=== PATIENT | female | born 1960 | race Caucasian/White ===

== ENCOUNTER 2018-11-29 09:57 | Outpatient (CLI) | payer BC, SELFPAY ==
--- NOTE | 2018-11-29 09:48 | DI.RAD_ITS ---
SYMPTOM/DIAGNOSIS: LT KNEE PAIN LEFT KNEE: Comparison is made with 27 January 2018. Areas of sclerosis are again noted in the distal femur and proximal tibia related to prior ACL repair. The joint spaces are well maintained. No joint effusion is seen.
== END 2018-11-29 10:17 ==
PROVIDERS: Visit Provider Physician Assistant
DX: M25.562 Pain in left knee (principal)
CPT/HCPCS: 73562

== ENCOUNTER 2018-12-02 01:26 | Outpatient (CLI) | payer BC, SELFPAY ==
--- NOTE | 2018-12-02 10:45 | DI.MRI_ITS ---
SYMPTOM/DIAGNOSIS: CHRONIC LT KNEE PAIN, OSTEOCHONDRAL DEFECT, INTERNAL DERANGEMENT KNEE M24.10 MRI LEFT KNEE: Comparison is made with MRI of the left knee dated 09 February 2018 and plain films dated 29 November 2018 FS T2 axial, proton density and FS T2 sagittal and coronal and proton density oblique sagittal sequences were performed. There is some thickening within the anterior cruciate ligament repair near the femoral attachment but no definite change from the previous exam. The posterior cruciate ligament, medial and lateral collateral ligaments and extensor mechanism appear intact. The medial meniscus appears slightly diminutive. There is no evidence of a superimposed tear. The lateral meniscus appears intact. There is a small joint effusion. No cartilage defects are identified. IMPRESSION: Intact ACL repair. Post surgical changes of the medial meniscus without evidence of superimposed tear. No evidence of an osteochondral defect.
== END 2018-12-02 01:46 ==
PROVIDERS: Visit Provider Student in an Organized Health Care Education/Training Program
DX: M25.562 Pain in left knee (principal); M23.92 Unspecified internal derangement of left knee; M24.10 Other articular cartilage disorders, unspecified site
CPT/HCPCS: 73721

== ENCOUNTER 2019-01-25 08:15 | Day surgery (SDC) | payer BC, SELFPAY ==
[2019-01-25] VITALS (7 sets, daily range): BP systolic 113–136; BP diastolic 62–80; PULSE 67–78; RESP 13–21; TEMP 35.8–36.7; O2SAT 95–98
--- NOTE | 2019-01-25 08:14 | W.PREOPHP ---
Documented by User: MELONIE Rosas 01/25/19 09:03 Date of service: 01/25/19 Assessment and Plan (1) Internal derangement of left knee: Current visit: No Status: Chronic LEFT knee arthroscopy. Details of surgery were discussed with patient as well as pertinent anatomy. All questions were answered. History of Present Illness Chief Complaint: Left knee pain Narrative: Laura is a 58 year old femaile who comes in today for a LEFT knee arthroscopy. She has had a very complex history with the left knee, starting with an injury in the summer where she suffered an ACL tear. She had an ACL reconstruction in September of 2016 and since then has experienced LEFT knee pain with weight bearing. She has exhausted all measures of conservative treatment including injections, a period of non-weightbearing, a LEFT knee arthroscopy, and an MRI in order to rule out other diagnoses including AVN of the left knee. Despite these interventions and tests, she has neither found an answer, nor a treatment that has given her relief from her pain. At this point, Dr. Reese offers a LEFT knee arthroscopy with synovial biopsy for diagnostic purposes, and Laura agrees with this plan and elects to proceed. Pertinent Surgical Information Patient denies history of hypertension, CVA, NH, angina, asthma, COPD, renal or liver disorders, hepatitis, bleeding disorders, diabetes, immune or thyroid disorders. No complications from anesthesia. Review of Systems Constitutional Denies fever(s) ENT Denies dizziness and Denies sore throat Cardiovascular Denies chest pain, Denies palpitations and Denies dyspnea Respiratory Denies cough and Denies dyspnea Gastrointestinal Denies abdominal pain, Denies melena, Denies hematochezia, Denies diarrhea, Denies nausea and Denies vomiting Genitourinary Denies hematuria and Denies dysuria Neurologic Denies dizziness Endocrine Denies palpitations [facility] Medical History Abdominal bloating Abdominal pain Anxiety Colonic polyp Effusion, left knee Nella's disease Hx of abnormal mammogram Left ACL tear Neck pain 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 Sister Diabetes Sister No problems noted. Brother Neoplasm Brother No problems noted. Brother No problems noted. Son No problems noted. Son No problems noted. Son No problems noted. Daughter No problems noted. Social History Smoking/Tobacco Use Status: Current every day Drug use: Never Do you feel safe in your relationship?: Yes Meds Home Medications Medication Instructions Recorded Confirmed Type omega-3 fatty acids-fish oil 1 ea PO DAILY 02/16/13 01/25/19 History epinephrine [EpiPen 2-Dylan] 0.3 mg IJ PRN #1 pkt 02/21/14 01/25/19 Rx Restasis 1 drp OPHTHALMIC BID drp 07/06/14 01/25/19 History Narcan 4 mg NS DIRECTED #2 spray 09/22/17 01/25/19 Rx citalopram 10 mg PO DAILY #90 tab-cap 03/03/18 01/25/19 Rx acetaminophen [Acetaminophen Extra 1,000 mg PO TID #100 tab 04/06/18 01/25/19 Rx Strength] ibuprofen 600 mg PO Q6H PRN PRN #90 tab 04/06/18 01/25/19 Rx fluocinolone 15 gm TOPICAL BID PRN 01/21/19 01/25/19 History sodium chloride [Isra 128] 1 drp OPHTHALMIC (EYE) HS 01/21/19 01/25/19 History Allergies Allergy/AdvReac Type Severity Reaction Status Date / Time oregano Allergy Severe Anaphylaxsi Verified 01/25/19 08:35 s pineapple AdvReac Intermediate some Verified 01/25/19 08:35 swelling of tongue lobster Allergy Intermediate Uncoded 01/21/19 11:38 Exam HENMT Head: normocephalic and atraumatic General nose exam: no nasal discharge Other: soft palate rises symmetrically, no erythema Eyes Conjunctivae: conjunctivae normal Sclera: sclerae normal Resp Effort & Inspection: normal respiratory effort Auscultation: clear to auscultation bilaterally and no wheezes Cardio Rate: regular rate Rhythm: regular rhythm Heart Sounds: S1 normal, S2 normal and no murmurs Documented by User: Pepe Reese MD 01/25/19 12:05 [facility] Medical History Abdominal bloating Abdominal pain Anxiety Colonic polyp Effusion, left knee Nella's disease Hx of abnormal mammogram Left ACL tear Neck pain 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 Sister Diabetes Sister No problems noted. Brother Neoplasm Brother No problems noted. Brother No problems noted. Son No problems noted. Son No problems noted. Son No problems noted. Daughter No problems noted. Social History Smoking/Tobacco Use Status: Current every day Drug use: Never Do you feel safe in your relationship?: Yes Meds Home Medications Medication Instructions Recorded Confirmed Type omega-3 fatty acids-fish oil 1 ea PO DAILY 02/16/13 01/25/19 History epinephrine [EpiPen 2-Dylan] 0.3 mg IJ PRN #1 pkt 02/21/14 01/25/19 Rx Restasis 1 drp OPHTHALMIC BID drp 07/06/14 01/25/19 History Narcan 4 mg NS DIRECTED #2 spray 09/22/17 01/25/19 Rx citalopram 10 mg PO DAILY #90 tab-cap 03/03/18 01/25/19 Rx acetaminophen [Acetaminophen Extra 1,000 mg PO TID #100 tab 04/06/18 01/25/19 Rx Strength] ibuprofen 600 mg PO Q6H PRN PRN #90 tab 04/06/18 01/25/19 Rx fluocinolone 15 gm TOPICAL BID PRN 01/21/19 01/25/19 History sodium chloride [Isra 128] 1 drp OPHTHALMIC (EYE) HS 01/21/19 01/25/19 History Allergies Allergy/AdvReac Type Severity Reaction Status Date / Time oregano Allergy Severe Anaphylaxsi Verified 01/25/19 08:35 s pineapple AdvReac Intermediate some Verified 01/25/19 08:35 swelling of tongue lobster Allergy Intermediate Uncoded 01/21/19 11:38
--- NOTE | 2019-01-25 08:23 | HPE_ITS ---
Documented by User: MELONIE Rosas 01/25/19 09:03 Date of service: 01/25/19 Assessment and Plan (1) Internal derangement of left knee: Current visit: No Status: Chronic LEFT knee arthroscopy. Details of surgery were discussed with patient as well as pertinent anatomy. All questions were answered. History of Present Illness Chief Complaint: Left knee pain Narrative: Laura is a 58 year old femaile who comes in today for a LEFT knee arthroscopy. She has had a very complex history with the left knee, starting with an injury in the summer where she suffered an ACL tear. She had an ACL reconstruction in September of 2016 and since then has experienced LEFT knee pain with weight bearing. She has exhausted all measures of conservative treatment including injections, a period of non-weightbearing, a LEFT knee arthroscopy, and an MRI in order to rule out other diagnoses including AVN of the left knee. Despite these interventions and tests, she has neither found an answer, nor a treatment that has given her relief from her pain. At this point, Dr. Reese offers a LEFT knee arthros copy with synovial biopsy for diagnostic purposes, and Laura agrees with this plan and elects to proceed. Pertinent Surgical Information Patient denies history of hypertension, CVA, GA, angina, asthma, COPD, renal or liver disorders, hepatitis, bleeding disorders, diabetes, immune or thyroid disorders. No complications from anesthesia. Review of Systems Constitutional Denies fever(s) ENT Denies dizziness and Denies sore throat Cardiovascular Denies chest pain, Denies palpitations and Denies dyspnea Respiratory Denies cough and Denies dyspnea Gastrointestinal Denies abdominal pain, Denies melena, Denies hematochezia, Denies diarrhea, Denies nausea and Denies vomiting Genitourinary Denies hematuria and Denies dysuria Neurologic Denies dizziness Endocrine Denies palpitations [facility] Medical History Abdominal bloating Abdominal pain Anxiety Colonic polyp Effusion, left knee Nella's disease Hx of abnormal mammogram Left ACL tear Neck pain 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 Sister Diabetes Sister No problems noted. Brother Neoplasm Brother No problems noted. Brother No problems noted. Son No problems noted. Son No problems noted. Son No problems noted. Daughter No problems noted. Social History Smoking/Tobacco Use Status: Current every day Drug use: Never Do you feel safe in your relationship?: Yes Meds Home Medications Medication Instructions Recorded Confirmed Type omega-3 fatty acids-fish oil 1 ea PO DAILY 02/16/13 01/25/19 History epinephrine [EpiPen 2-Dylan] 0.3 mg IJ PRN #1 pkt 02/21/14 01/25/19 Rx Restasis 1 drp OPHTHALMIC BID drp 07/06/14 01/25/19 History Narcan 4 mg NS DIRECTED #2 spray 09/22/17 01/25/19 Rx citalopram 10 mg PO DAILY #90 tab-cap 03/03/18 01/25/19 Rx acetaminophen [Acetaminophen Extra 1,000 mg PO TID #100 tab 04/06/18 01/25/19 Rx Strength] ibuprofen 600 mg PO Q6H PRN PRN #90 tab 04/06/18 01/25/19 Rx fluocinolone 15 gm TOPICAL BID PRN 01/21/19 01/25/19 History sodium chloride [Isra 128] 1 drp OPHTHALMIC (EYE) HS 01/21/19 01/25/19 History Allergies Allergy/AdvReac Type Severity Reaction Status Date / Time oregano Allergy Severe Anaphylaxsi Verified 01/25/19 08:35 s pineapple AdvReac Intermediate some Verified 01/25/19 08:35 swelling of tongue lobster Allergy Intermediate Uncoded 01/21/19 11:38 Exam HENMT Head: normocephalic and atraumatic General nose exam: no nasal discharge Other: soft palate rises symmetrically, no erythema Eyes Conjunctivae: conjunctivae normal Sclera: sclerae normal Resp Effort & Inspection: normal respiratory effort Auscultation: clear to auscultation bilaterally and no wheezes Cardio Rate: regular rate Rhythm: regular rhythm Heart Sounds: S1 normal, S2 normal and no murmurs Documented by User: Pepe Reese MD 01/25/19 12:05 [facility] Medical History Abdominal bloating Abdominal pain Anxiety Colonic polyp Effusion, left knee Nella's disease Hx of abnormal mammogram Left ACL tear Neck pain 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 Sister Diabetes Sister No problems noted. Brother Neoplasm Brother No problems noted. Brother No problems noted. Son No problems noted. Son No problems noted. Son No problems noted. Daughter No problems noted. Social History Smoking/Tobacco Use Status: Current every day Drug use: Never Do you feel safe in your relationship?: Yes Meds Home Medications Medication Instructions Recorded Confirmed Type omega-3 fatty acids-fish oil 1 ea PO DAILY 02/16/13 01/25/19 History epinephrine [EpiPen 2-Dylan] 0.3 mg IJ PRN #1 pkt 02/21/14 01/25/19 Rx Restasis 1 drp OPHTHALMIC BID drp 07/06/14 01/25/19 History Narcan 4 mg NS DIRECTED #2 spray 09/22/17 01/25/19 Rx citalopram 10 mg PO DAILY #90 tab-cap 03/03/18 01/25/19 Rx acetaminophen [Acetaminophen Extra 1,000 mg PO TID #100 tab 04/06/18 01/25/19 Rx Strength] ibuprofen 600 mg PO Q6H PRN PRN #90 tab 04/06/18 01/25/19 Rx fluocinolone 15 gm TOPICAL BID PRN 01/21/19 01/25/19 History sodium chloride [Isra 128] 1 drp OPHTHALMIC (EYE) HS 01/21/19 01/25/19 History Allergies Allergy/AdvReac Type Severity Reaction Status Date / Time oregano Allergy Severe Anaphylaxsi Verified 01/25/19 08:35 s pineapple AdvReac Intermediate some Verified 01/25/19 08:35 swelling of tongue lobster Allergy Intermediate Uncoded 01/21/19 11:38
[2019-01-25] MEDS: Lactated Ringers 1,000 ML 80 ML IV (09:06)
[2019-01-25] MEDS: Bupivacaine 0.5% Pres-Free 30 ML VIAL (10:40)
[2019-01-25] MEDS: fentaNYL 100 MCG/2 ML VIAL IVP ×2 (10:55→11:05)
[2019-01-25] MEDS: HYDROmorphone 2 MG/ML VIAL IVP (11:15)
--- NOTE | 2019-01-25 12:06 | PDOC.DSDIS_ITS ---
Discharge Plan Disposition Patient Disposition: HOME Condition: Good Discharge Details Reason For Visit: L Knee Pain Attending Provider: Pepe Reese Primary Care Provider: Carolyn Mcdonald Home Meds and New Rx's Prescriptions: New oxycodone 5 mg tablet 5 mg PO Q4H Qty: 18 RF: 0 Continued omega-3 fatty acids-fish oil 1 EACH capsule 1 ea PO DAILY RF: 0 Restasis 1 EACH dropperette 1 drp Ophthalmic BID RF: 0 citalopram 10 MG tablet 10 mg PO DAILY Qty: 90 RF: 4 epinephrine [EpiPen 2-Dylan] 0.3 MG/0.3 ML auto-injector 0.3 mg IJ PRN Qty: 1 RF: 0 Narcan 4 MG spray,non-aerosol 4 mg NS DIRECTED Qty: 2 RF: 0 sodium chloride [Isra 128] 5 % Drops 1 drp OPHTHALMIC (EYE) HS RF: 0 fluocinolone 15 GM cream 15 gm Topical BID PRNRF: 0 acetaminophen [Acetaminophen Extra Strength] 500 MG tablet 1,000 mg PO TID Qty: 100 RF: 0 ibuprofen 600 MG tablet 600 mg PO Q6H PRN PRN (Reason: Pain) Qty: 90 RF: 2 Discharge Instructions Stand Alone Forms: [facility], [facility] Post op Instructions, Dorie Chauhan ([facility]) Referrals: Pepe Reese MD [ [facility] STAFF PHYSICIAN] - Equipment/Supplies: Partial Weight Bearing Crutches Activity:: Activity as Tolerated Remove Dressings/Wound Care:: 72 hours Shower/Bathe:: 72 hours Diet:: As Tolerated Discharge Orders Discharge Orders: Discharge Order (Routine); Ordered 01/25/19 Ordered By: Pepe Reese DS: Diagnosis Discharge Diagnosis (1) Internal derangement of left knee: Status: Chronic
--- NOTE | 2019-01-26 07:17 | ROE_ITS ---
Date of service: 01/25/19 Time of Service: 14:11 Operative Note DATE OF PROCEDURE: 01/25/19 PRE-OP DIAGNOSIS: Left knee internal derangement POST-OP DIAGNOSIS: other (Left knee nonhealed medial meniscal tear, complex) PROCEDURE: Left knee arthroscopic partial medial meniscectomy SURGEON: Pepe Reese ANESTHESIA: GETThao ESTIMATED BLOOD LOSS: 10 PATHOLOGY: none sent TOURNIQUET TIME: 0 COMPLICATIONS: None Patient was transported to: PACU Patient's condition: stable Indications: I have seen Laura in clinic for symptoms of continued knee pain in the setting of an ACL reconstruction. She has had multiple rounds of physical therapy and multiple investigations to try to understand why she continues have pain. She is now over a year out and continues with medial sided pain with all activity. Repeat MRI did show some signal to the medial meniscus but she had known previous medial meniscal repair in this area. TNonoperative measures were exhausted but disability and pain persisted. I discussed knee arthroscopy with meniscal intervention with the patient. I reviewed the risks of the procedure to include, but not limited to, bleeding, infection, pain, stiffness, damage to nerves or vessels, recurrence, blood clot. Despite these risks, the patient elected to proceed. Findings: A diagnostic arthroscopy was performed with the following findings: Suprapatellar Pouch: No significant inflammation, no loose bodies, some mild adhesions Medial Compartment: Complex medial meniscal tear, intact meniscal root, focal areas of grade II chondromalacia, no loose bodies Notch: ACL and PCL were intact, the ACL was more lax than I would expect Lateral Compartment: No meniscal tear, intact meniscal root, no significant chondromalacia or signs of arthritis, no loose bodies Patellofemoral Compartment: Grade I chondromalacia of the patella and focal grade I chondromalacia of the trochlea, no apparent patellar maltracking Procedure Description: Laura was greeted in the preoperative holding area where the correct side was identified and marked. The consent was reviewed with the patient and signed. The history and physical was updated. All questions were answered. Laura was taken back to the operating room. The patient was placed into the supine position on the operating room table. A nonsterile tourniquet was placed high onto the leg but not used. All bony prominences were well padded. Prophylactic antibiotics in the form of cefazolin were administered. The left leg was then prepped with Chloraprep and draped in a standard fashion with stockinette and extremity drape. A timeout to confirm correct identity, side and site, procedure, allergies, anesthesia, and medical concerns was performed. The leg was placed into a pneumatic leg herring, [id number]. An aspiration of the knee was performed first which revealed only 2 cc of very normal-appearing s ynovial fluid. This was sent to the lab. A standard lateral portal was made at the lateral border of the patella tendon in line with the inferior pole of the patella, soft spot. The skin and deep tissue was incised sharply and the blunt trochar was inserted atraumatically. A diagnostic arthroscopy was performed and the findings are listed above. The suprapatellar pouch had no significant infl ammatory change and some mild adhesions. The patellofemoral articulation showed very focal grade I chondromalacia as well as good tracking. The lateral gutter had no loose bodies and the medial gutter had no loose bodies. The knee was brought into some valgus stress in extension to open the medial compartment. A medial portal was made, localized by a spinal needle. The portal was created with an #11 blade through skin and capsule under direct visualization avoiding any meniscal injury. A probe was then inserted into the medial compartment. The medial compartment was fully inspected. The chondral surface of the tibia showed some focal grade I chondromalacia and the surface of the femur showed focal grade II chondromalacia. The medial meniscus had no readily apparent meniscal tear. A probe was used both on the top and undersurface of the meniscus to confirm there was no tear. The previous area of meniscal tear was focused on. With probing the probe immediately sank into the meniscus. With minimal effort the probe was able to disrupt any healing that had happened and showed a complex meniscal tear with both horizontal and vertical components. After evaluation, the meniscus was debrided down to a stable base using a series of biters and arthroscopic danay. It was probed afterwards to confirm that the tear had been removed and the meniscus was stable. The notch was then inspected which showed an intact ACL and an intact PCL. The ACL appeared to be in good position both from the tibia and the femur with no PCL impingement and no notch impingement. However the size of the ACL graft was more diminutive than I remembered and expected. It was also more lax than I would expect. I was concerned that the graft itself, a cadaver specimen, was failing. However, I did not debride this down as it still is intact between the femur and the tibia. The leg was then brought into a figure of 4 position. The lateral compartment was fully inspected with the arthroscope and a probe. The chondral surface of the lateral femur showed no significant chondromalacia. The chondral surface of the lateral tibia showed no significant chondromalacia. The lateral meniscus had no meniscal tear. The arthroscope was brought back into the suprapatellar pouch and the leg was in full extension. The knee was thoroughly irrigated with the arthroscopic fluid on high flow and pressure. Inflow was stopped and excess fluid was removed. The wounds were closed with 4-0 Nylon. They were dressed with Xeroform, 4x4 gauze, ABD pad, Kerlix and an JALYN wrap. A cryo-cuff was applied. The patient tolerated the procedure well and was returned to the Same Day Surgery area in a stable condition suffering no known complication.
== END 2019-01-25 13:16 | disposition home or self-care (01) ==
PROVIDERS: Visit Provider Student in an Organized Health Care Education/Training Program
PROC: (CPT 29870; principal; 2019-01-25 10:00)
DX: M23.204 Derangement of unspecified medial meniscus due to old tear or injury, left knee (principal); M94.262 Chondromalacia, left knee; M22.42 Chondromalacia patellae, left knee
CPT/HCPCS: 29881; NC; 87070; 87075; 87205; J1100; J1885; J2405; J3010

== ENCOUNTER 2019-06-30 00:44 | Outpatient (CLI) | payer BC, SELFPAY ==
--- NOTE | 2019-06-30 16:17 | DI.MAMMO_ITS ---
SYMPTOM/DIAGNOSIS: SCREENING Z12.31 BILATERAL SCREENING MAMMOGRAM: Mammograms were interpreted according to the usual protocol including computer analysis with CAD system, tomosynthesis and C view imaging. Comparison is made with exams from 2015 through 2017 The breasts are composed of scattered fibroglandular densities, breast density category B. No suspicious masses or suspicious microcalcifications are seen. There has been no significant change IMPRESSION: Category 1, negative mammogram. Yearly screening mammography is recommended. Breast density category B. SA ASSESSMENT OF FINDINGS: Negative. Category 1. Patient will receive a letter notifying them of these results. BI-RADS category B. There are scattered areas of fibroglandular density.
== END 2019-06-30 01:04 ==
DX: Z12.31 Encounter for screening mammogram for malignant neoplasm of breast (principal)
CPT/HCPCS: 77063; 77067

== ENCOUNTER 2019-09-06 14:00 | Outpatient (CLI) | payer BC, SELFPAY ==
--- NOTE | 2019-09-06 06:00 | DI.RAD_ITS ---
EXAM: XR PAIN CLINIC FLUORO JOINT IN CLINICAL HISTORY: Dx: Osteoarthritis of left knee. TECHNIQUE: Fluoroscopy was provided for the referring physician for guidance with performing injecti on procedure. COMPARISON: No exams were available for comparison FINDINGS: Please see procedure note for details. RADIATION DOSE DELIVERED: Fluoro time 17.6 seconds. Fluoro dose 0.81 mGy.
--- NOTE | 2019-09-06 11:53 | PDOC.PAIN ---
Assessment and Plan Assessment and plan (1) Knee pain, left: Status: Acute Assessment and plan: proceed with planned diagnostic left genicular nerve block
[2019-09-06 14:04] VITALS: BP 120/70; PULSE 80; RESP 16; TEMP 37.2; O2SAT 97
--- NOTE | 2019-09-06 14:15 | PDOC.PAIN_ITS ---
Pain Clinic Procedure Note Procedure Note Procedure Note: LEFT GENICULAR NERVE BLOCK Date of Service: September 06, 2019 Patient: ROBB THURMAN Provider: Sirisha De La Cruz MD COMMENTS: Pre-procedure VAS to the LEFT knee is 8/10. ROBB THURMAN has been referred to the [facility] for left genicular nerve block. ROBB was interviewed and the medical record reviewed. There were no medical, pharmacologic, radiographic or other structural contraindications to attempting fluoroscopically guided left genicular nerve block. Risks and potential side effects as well as potential benefit of the procedure were reviewed with ROBB , and her voiced concerns were addressed. After I believed that the patient was completely informed, the printed consent form was signed. Standard time-out procedure was performed. ROBB was placed in the supine position on the fluoroscopy table and automated blood pressure cuff and pulse oximeter applied. The skin entry points for approaching left superolateral genicular nerve, the superomedial genicular nerve and the inferomedial genicular was identified under the most advantageous fluoroscopic view and marked. Following thorough Chlorhexadine preparation of the skin and draping, 1% lidocaine infiltration of the skin entry point and subcutaneous tissues was accomplished using a 1.5 25G needle. Next, the 3.5 25G spinal needle was advanced to os at the location of the specific nerve root using fluoroscopic guidance. Next, 1 cc of 0.5% Bupivocaine was injected at each site. The needles were removed without difficulty. ROBB's vital signs were stable throughout the procedure and were as recorded in the docflowsheet by the nursing staff. If given, dosages of intravenous drugs for anxiolysis and analgesia were documented in MAR. Follow up plans and appointments were discussed with the ROBB . Post procedure instruction was given as documented in nursing documentation and having met discharge criteria, ROBB was discharged from the [facility]. COMMENTS: No complications. Post-procedure VAS to the left knee is 0/10. The patient will keep track of her left knee pain over the next four hours. If ROBB has sufficient pain relief, ROBB will be a candidate for radiofrequency ablation at the same nerves. Cody WJ1, Rodney SJ, Espinoza JG, Olivier JG, Troy BARRIOS, Park PH, Callahan JW. Radiofrequency treatment relieves chronic knee osteoarthritis pain: a double-blind randomized controlled trial. Pain. 2010;152(3):481-7. doi: 10.1016/j.pain.2009.09.029. Imelda S1, Johnny ON2, Ami Y3, ?zl?ginny P2, Gm U1, Otto ?m?rl? I. Which one is more effective for the clinical treatment of chronic pain in knee osteoarthritis: radiofrequency neurotomy of the genicular nerves or intra- articular injection? Int J Rheum Dis. 2016 Jun 13. F/U with Shira Shafer APRN on prn basis Additional comment: at end of today's procedure, when patient went from sitting position to standing position, she endorsed a feeling of unsteadiness described as I feel my body is rocking back and forth like you are in a boat. she denies dizziness, lightheadedness, no knee buckling, no leg weakness. she also reports this feeling of unsteadiness has been on-going, she has spoke to her orthopedic and PCP providers regarding this issue. motor strength intact and sensation intact. I encouraged patient to follow up with her PCP regarding unsteadiness to make sure other causes have been ruled out, including ocular/vestibular dysfunction. patient reports baseline chronic left foot tingling which sometimes can contribute to changes in propioception. she was able to ambulate independently without obvious signs of abnormal gait. she also reports resolution of her left knee pain after the injection today. I personally performed this entire procedure. Sirisha De La Cruz MD Attending Physician
[2019-09-06 14:41] VITALS: O2SAT 99
[2019-09-06] MEDS: Omnipaque 240 MG/ML 50 ML BTL IJ (14:57)
[2019-09-06] MEDS: Bupivacaine 0.5% Pres-Free 10 ML VIAL IJ (15:09)
== END 2019-09-06 14:20 ==
PROVIDERS: Visit Provider Internal Medicine
DX: M25.562 Pain in left knee (principal)
CPT/HCPCS: 64450 ×3; 77002; Q9967

== ENCOUNTER 2019-09-22 07:46 | Outpatient (CLI) | payer BC, SELFPAY ==
[2019-09-22 07:52] VITALS: BP 123/72; PULSE 74; RESP 18; TEMP 36.7; O2SAT 95
--- NOTE | 2019-09-22 08:20 | PDOC.PAIN_ITS ---
Pain Clinic Procedure Note Procedure Note Procedure Note: LEFT GENICULAR NERVE RADIOFREQUENCY ABLATION WITH THE COOLIEF MACHINE Date of Service: September 22, 2019 Patient: ROBB THURMAN Provider: Sirisha MCKINNEY MD Pre-operative diagnosis: left knee OA Post-operative diagnosis: same as above COMMENTS: Previous Genicular nerve block to the left knee with excellent response. ROBB THURMAN has been referred to the [facility] for left genicular nerve radiofrequency ablation. ROBB was interviewed and the medical record reviewed. There were no medical, pharmacologic, radiographic or other structural contraindications to attempting fluoroscopically guided left genicular nerve radiofrequency ablation. Risks and potential side effects as well as potential benefit of the procedure were reviewed with ROBB THURMAN , and her voiced concerns were addressed. After I believed that the patient was completely informed, the printed consent form was signed. Standard time-out procedure was performed. ROBB was placed in the supine position on the fluoroscopy table and automated blood pressure cuff and pulse oximeter applied. The skin entry points for approaching left superolateral genicular nerve, the superomedial genicular nerve and the inferomedial genicular was identified under the most advantageous fluoroscopic view and marked. Following thorough Chlorhexadine preparation of the skin and draping, 1% lidocaine infiltration of the skin entry point and subcutaneous tissues was accomplished using a 1.5 25G needle. Next, the 17 Gauge, 50mm Coolief RF Cannula with a 4 mm active tip was advanced to os at the location of the specific nerve roots (3) using fluoroscopic guidance. Next, sensory and motor testing was performed and no abnormal findings were found. Next, 1 cc of 2% Lidocaine was injected at each site. The lesion was then created with 80 degrees C for 90 seconds. Each needle was advance 1 cm and the lesion was completed again. Each cannula was advanced until the tip reached the posterior aspect of the bone shaft. 2 cc of 0.5% Bupivacaine as the needle was withdrawn. The needles were removed without difficulty. ROBB's vital signs were stable throughout the procedure and were as recorded in the docflowsheet by the nursing staff. If given, dosages of intravenous drugs for anxiolysis and analgesia were documented in MAR. patient received total of 1mg of IV Versed and 50mcg of Fentanyl. Follow up plans and appointments were discussed with the ROBB THURMAN . Post procedure instruction was given as documented in nursing documentation and having met discharge criteria, ROBB was discharged from the [facility]. COMMENTS: No complications. Ross WJ1, Rodney SJ, Espinoza JG, Olivier JG, Simmons BARRIOS, Park PH, Callahan JW. Radiofrequency treatment relieves chronic knee osteoarthritis pain: a double-blind randomized controlled trial. Pain. 2010;152(3):481-7. doi: 10.1016/j.pain.2010.09.029. Imelda S1, Johnny ON2, Ami Y3, ?zl?ginny P2, Gm U1, Otto ?m?rl? I. Which one is more effective for the clinical treatment of chronic pain in knee osteoarthritis: radiofrequency neurotomy of the genicular nerves or intra- articular injection? Int J Rheum Dis. 2016 Jun 13. I personally performed this entire procedure. Sirisha Mckinney MD Attending Physician
[2019-09-22] MEDS: Lactated Ringers 1,000 ML 80 ML IV (08:27)
[2019-09-22] MEDS: fentaNYL 100 MCG/2 ML VIAL IVP ×2 (08:32→08:44)
[2019-09-22] MEDS: Midazolam 2 MG/2 ML VIAL IVP (08:32)
[2019-09-22 09:00] VITALS: BP 109/60; PULSE 64; RESP 13; O2SAT 100
--- NOTE | 2019-09-22 09:02 | DI.RAD_ITS ---
EXAM: XR PAIN CLINIC FLUORO JOINT IN CLINICAL HISTORY: LEFT GENICULAR RFA, LT KNEE PAIN TECHNIQUE: Realtime digital imaging was performed. COMPARISON: No exams were available for comparison FINDINGS: Fluoroscopy was utilized by Dr. De La Cruz during the performance of a left genicular nerve radiofrequency ab lation. Please refer to the procedure report for complete details. FLUORO TIME: 33.5 seconds
[2019-09-22] MEDS: Lidocaine 2% Pres-Free 5 ML VIAL IJ (09:15)
[2019-09-22] MEDS: Bupivacaine 0.5% Pres-Free 10 ML VIAL IJ (09:19)
== END 2019-09-22 08:06 ==
PROVIDERS: Visit Provider Internal Medicine
DX: M17.12 Unilateral primary osteoarthritis, left knee (principal)
CPT/HCPCS: 64640 ×3; 77002; J2250; J3010

== ENCOUNTER 2019-11-25 00:47 | Outpatient (CLI) | payer BC, SELFPAY ==
--- NOTE | 2019-11-25 10:43 | DI.NM_ITS ---
EXAM: NM BONE SCAN 3 PHASE CLINICAL HISTORY: S/P ACL REPAIR, KNEE PAIN LT, M25.562 TECHNIQUE: Three-phase bone scan with SPECT imaging was performed following intravenous infusion of 24 millicuries of technetium 99 labeled methylene diphosphonate. Patient reportedly has left knee pa in status post ACL repair. COMPARISON: ABD PELVIS WITH CONTRAST from 08/08/2016 FINDINGS: Whole body imaging shows minimally increased uptake in left knee in a pattern consistent with prior A CL repair. No other significant area of increased uptake seen. Planar images show mildly increased uptake at expected surgical sites in distal femur and proximal tibia post ACL repair. Fused SPECT im ages also show mildly increased uptake associated with the expected femoral and tibial defects. IMPRESSION: Findings as described do not suggest the presence of osteomyelitis. If there is a high clinical susp icion of osteomyelitis, additional followup with MR scanning could be considered.
== END 2019-11-25 01:07 ==
PROVIDERS: Visit Provider Student in an Organized Health Care Education/Training Program
DX: M25.562 Pain in left knee (principal); Z98.890 Other specified postprocedural states
CPT/HCPCS: 78315

== ENCOUNTER 2019-12-02 01:46 | Outpatient (CLI) | payer BC, SELFPAY ==
--- NOTE | 2019-12-02 14:45 | DI.CT_ITS ---
EXAM: CT LOWER EXTREMITY LT WO CLINICAL HISTORY: Painful ACL. Eval tunnel position, size, hardware, LT ACL TEAR S83.512A TECHNIQUE: COMPARISON: No exams were available for comparison FINDINGS: CT examination of the knee was performed utilizing multi slice acquisition and multiplanar reconstruc tion. Patient reportedly has an ACL reconstruction. The tibial tunnel is about 12 millimeters in ma ximal diameter. Femoral tunnel is about 6 millimeters in maximal diameter. Femoral and tibial tunnels do not appear ideally aligned and if there is a clinical suspicion of ACL compromise additional eval uation with MR would be recommended. There is mild lateral patellar subluxation. There are degenerative changes of the medial tibiofemora l joint with subchondral sclerosis moderate cartilaginous joint space narrowing. No other significan t findings. IMPRESSION:
== END 2019-12-02 02:06 ==
PROVIDERS: Visit Provider Student in an Organized Health Care Education/Training Program
DX: M25.562 Pain in left knee (principal); S83.512A Sprain of anterior cruciate ligament of left knee, initial encounter; M17.12 Unilateral primary osteoarthritis, left knee
CPT/HCPCS: 73700

== ENCOUNTER 2020-01-07 08:40 | Outpatient (CLI) | payer BC, SELFPAY ==
[2020-01-07 11:06] LABS: ALT 23 U/L (14-59); AST 14 U/L (15-37); Alkaline Phosphatase 70 U/L (46-116); Anion Gap 9.3 mmol/L (3-11); BUN 21 mg/dL (7-18); Bilirubin, Total 0.3 mg/dL (0.2-1.0); CO2 28.7 mmol/L (21.0-32.0); CREATININE 0.85 mg/dL (0.55-1.02); Calcium 8.7 mg/dL (8.5-10.1); Chloride 108 mmol/L (98-107); Glucose 88 mg/dL (74-106); Potassium 4.2 mmol/L (3.5-5.1); Sodium 146 mmol/L (136-145); Total Protein 6.7 g/dL (6.4-8.2)
== END 2020-01-07 09:00 ==
DX: Z00.00 Encounter for general adult medical examination without abnormal findings (principal); F41.9 Anxiety disorder, unspecified; R63.8 Other symptoms and signs concerning food and fluid intake; M25.462 Effusion, left knee
CPT/HCPCS: 36415; 80053

== ENCOUNTER 2020-03-06 08:56 | Outpatient (CLI) | payer BC, SELFPAY ==
[2020-03-07 08:02] LABS: COVID-19 RT-PCR UVMMC Result Negative (Negative)
== END 2020-03-06 09:16 ==
PROVIDERS: Visit Provider Student in an Organized Health Care Education/Training Program
DX: Z11.59 Encounter for screening for other viral diseases (principal); Z01.818 Encounter for other preprocedural examination
CPT/HCPCS: U0003

== ENCOUNTER 2020-03-09 06:18 | Day surgery (SDC) | payer BC, SELFPAY ==
[2020-03-09] VITALS (7 sets, daily range): BP systolic 88–128; BP diastolic 44–74; PULSE 66–83; RESP 15–18; TEMP 36.5–36.7; O2SAT 94–98
--- NOTE | 2020-03-09 07:15 | HPE_ITS ---
Assessment and Plan Assessment and plan (1) Left ACL tear: Status: Acute Qualifiers: Encounter type: sequela Qualified Code(s): S83.512S - Sprain of anterior cruciate ligament of left knee, sequela (2) Pain from implanted hardware: Status: Acute Assessment and plan: Plan: Denies any close contact with Covid-19 positive persons. Educated patient on surgery covering surgical technique, recovery process, benefits and risks including but not limited to risk of infection, blood clot, damage to soft tissue/blood vessels/nerves in detail. After discussion patient gives verbal understanding of risks and elects to proceed with scheduling surgery. Patient had opportunity to have questions answered to their satisfaction. They will contact office if issues arise. Patient will continue to be scheduled for removal of painful hardware from left ACL repair and associated procedure with Dr. Reese. History of Present Illness Narrative: Ms. Martin is a 60-year-old female who presents to hospital for removal of painful hardware from her left knee. She is status post ACL reconstruction in September 2017. Unfortunately, she has continued to have pain in her left knee following surgery. She has been seen for this complaint several times in orthopedic clinic and due to continued symptoms she was offered surgical intervention and elected to proceed. Pertinent Surgical Information Denies past medical history of: Hypertension, stroke, cardiac issues, angina, asthma, COPD, renal issues, liver issues, hepatitis, gastrointestinal issues, ulcers, hyperlipidemia, bleeding disorders, seizures Denies prior complications from surgery or anesthesia. 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 Restless legs Seborrheic keratosis Smoker Vascular lesion Surgical History (Updated 03/09/20 @ 06:25 by Jennifer Buitrago RN) [place] [facility] [place] History of arthroscopic knee surgery (Chronic) x2 History of repair of ACL (Acute) Vaginal hysterectomy (12/23/01) HAS BOTH OVARIES Social History Smoking/Tobacco Use Status: Current every day Tobacco Type: cigarettes Quit status: has quit before Second Hand Exposure: Yes Counseling given: patient declined Alcohol Intake: current Alcohol Intake frequency: a few times a week Alcohol type: beer and wine Drug use: Never Substance use type: does not use Counseling given: No Counseling provided: none Caregiver/Support person: No Household members: spouse Housing: house Communication Needs: None Do you need help understanding health information?: Never Pets and animals: No Sexually active: Yes Do you think of yourself as: straight/heterosexual Current gender identity: female What is your relationship status?: How often do you talk on the phone with friends or family?: once per week How often do you get together with friends or relatives?: twice per week How often do you attend protestant or temple services?: 1-3 times per year Do you belong to any clubs or organized social groups?: no Panel score (0-1 are the most socially isolated patients): 2 What type of physical activity do you participate in: decline to answer Duration: decline to answer Frequency: decline to answer Marilu/Taoism: No preference Special marilu needs: No Seatbelt use: always Drive 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 Do you feel safe at home: Yes Do you feel safe in your relationship?: Yes Meds Home Medications and Allergies Home Medications Medication Instructions Recorded Confirmed Type epinephrine [EpiPen 2-Dylan] 0.3 mg IJ PRN #1 pkt 02/21/14 03/09/20 Rx Restasis 1 drp OPHTHALMIC BID drp 07/06/14 03/09/20 History sodium chloride [Isra 128] 1 drp OPHTHALMIC (EYE) HS 01/21/19 03/09/20 History omega-3 fatty acids-fish oil 300 2 cap PO DAILY cap 06/22/19 03/09/20 History mg-1,000 mg capsule acetaminophen 500 mg capsule 500 mg PO QID PRN #180 cap 07/14/19 03/09/20 Rx fluocinolone 0.025 % topical cream 1 applic TOPICAL BID PRN #60 gm 07/18/19 03/09/20 Rx diclofenac sodium 1 % topical gel 4 gm TP QID PRN 6 Days #100 gm 07/21/19 03/09/20 Rx citalopram 10 mg tablet 10 mg PO DAILY #90 tab-cap 12/05/19 03/09/20 Rx Allergies Allergy/AdvReac Type Severity Reaction Status Date / Time oregano Allergy Severe Anaphylaxsi Verified 03/09/20 06:25 s pineapple AdvReac Intermediate some Verified 03/09/20 06:25 swelling of tongue lobster Allergy Intermediate Uncoded 03/09/20 06:25 Exam Const General: cooperative and healthy appearing Resp Effort & Inspection: normal respiratory effort and able to speak in complete s entences Auscultation: clear to auscultation bilaterally, no rales, no rhonchi and no wheezes Cardio Heart Sounds: S1 normal, S2 normal and no murmurs Results Last Vital Signs Temp 36.7 C 03/09/20 06:22 Pulse 83 03/09/20 06:22 Resp 16 03/09/20 06:22 BP 128/74 03/09/20 06:22 Pulse Ox 95 03/09/20 06:22
[2020-03-09] MEDS: Celecoxib 200 MG CAP 400 MG PO (07:19)
[2020-03-09] MEDS: Lactated Ringers 1,000 ML 80 ML IV (07:19)
[2020-03-09] MEDS: Gabapentin 300 MG CAP PO (07:19)
[2020-03-09] MEDS: Acetaminophen 500 MG TAB 1000 MG PO (07:20)
--- NOTE | 2020-03-09 07:34 | W.PM.DSUDISC ---
Discharge Plan Disposition Patient Disposition: HOME Condition: Good Discharge Details Reason For Visit: HARDWARE REMOVAL (L) KNEE Attending Provider: Pepe Reese Primary Care Provider: Carolyn Mcdonald Home Meds and New Rx's Prescriptions: New acetaminophen 500 mg tablet 1,000 mg PO Q8H PRN (Reason: pain) Qty: 90 RF: 3 ibuprofen 600 mg tablet 600 mg PO TID PRNQty: 90 RF: 3 oxycodone 5 mg tablet 5 mg PO Q4H Qty: 18 RF: 0 Continued fluocinolone 0.025 % cream 1 applic Topical BID PRN (Reason: psoriasis) Qty: 60 RF: 0 citalopram 10 mg tablet 10 mg PO DAILY Qty: 90 RF: 4 Restasis 1 EACH dropperette 1 drp Ophthalmic BID RF: 0 omega-3 fatty acids-fish oil 300-1,000 mg capsule 2 cap PO DAILY RF: 0 diclofenac sodium 1 % gel 4 gm TP QID PRN (Reason: left knee pain) 6 Days Qty: 100 RF: 11 epinephrine [EpiPen 2-Dylan] 0.3 MG/0.3 ML auto-injector 0.3 mg IJ PRN Qty: 1 RF: 0 sodium chloride [Isra 128] 5 % Drops 1 drp OPHTHALMIC (EYE) HS RF: 0 Discontinued acetaminophen 500 mg capsule 500 mg PO QID PRN (Reason: pain) Qty: 180 RF: 0 Discharge Instructions Additional Instructions: Activity: You may bear weight as tolerated on the leg. You should use crutches for support, but may place as much weight as you'd like on the leg. You may move your ankle and toes as needed. Dressing: You should keep the knee dressing in place until your follow-up appointment. If it becomes soiled or it unravels, you should call and notify the office. You may rewrap or overwrap until the follow-up. Medications: - You should take Tylenol and Ibuprofen around the clock for the first days-weeks. This will cover baseline pain control. - You have been prescribed a stronger medication if needed. If this is necessary, and you need a refill, please call the office at [phone]. Follow-up: 1 week Referrals: Pepe Reese MD [ [facility] STAFF PHYSICIAN] - Equipment/Supplies: Partial Weight Bearing Crutches Activity:: Elevate Remove Dressings/Wound Care:: Do Not Remove Shower/Bathe:: Cover Diet:: As Tolerated Discharge Orders Discharge Orders: Discharge Order (Routine); Ordered 03/09/20 Ordered By: Pepe Reese DS: Diagnosis Discharge Diagnosis (1) Left ACL tear: Status: Acute (2) Pain from implanted hardware: Status: Acute
[2020-03-09] MEDS: ceFAZolin 2 GM/50 ML BAG IVPB (07:52)
--- NOTE | 2020-03-09 09:00 | KNEE_PTH ---
PATIENT: Chris Martin LOC: [facility] U#:[id number] AGE/SX: 60/F ROOM: RE03/09/[address]: Pepe Reese MD : 1960 BED: DIS: 03/09/2020 SPEC #: [id number] RECD: 03/09/20 11:17 STATUS: [place] REQ #: [id number] JAQUAN: 03/09/20 09:[address]: Pepe Reese DEPT: Surgical Specimen RECD BY: Amadou Montenegro ENTERED: 03/09/20 11:18 SP TYPE: KNEE OTHR DR: Carolyn Mcdonald APRN Tissues: 1 - SYNOVIUM/IAL Procedures: GROSS AND MICRO LEVEL 4 SPECIAL STAIN 1 Comments: [id number]
[2020-03-09] MEDS: Bupivacaine 0.25% Pres-Free 30 ML VIAL (09:08)
--- NOTE | 2020-03-09 15:11 | W.PM.OP ---
Date of service: 03/09/20 Time of Service: 09:11 Operative Note Operative Note DATE OF PROCEDURE: 03/09/20 PRE-OP DIAGNOSIS: Painful left knee ACL reconstruction POST-OP DIAGNOSIS: same PROCEDURE: Left knee arthroscopic synovectomy with removal of graft material SURGEON: Pepe Reese [employer] CUSTODIAN: Urmila De Jesus ANESTHESIA: spinal ESTIMATED BLOOD LOSS: 5 PATHOLOGY: none sent TOURNIQUET TIME: 0 COMPLICATIONS: None Patient was transported to: PACU Patient's condition: stable Indications: I have seen Laura in clinic for continued pain after ACL reconstruction. She has a significant history which is been documented in the office notes with persistent pain after the ACL reconstruction. She has had at least 2 of the procedures for synovectomy and meniscal treatment. However, she continues have pain. She has seen multiple providers for alternate opinions without any direction or diagnosis. Given the persistence of her symptoms and the positive bone scan findings, I offered removal of allograft material and what ever screw hardware was remaining. Nonoperative measures were exhausted but disability and pain persisted. I reviewed the risks of the procedure to include, but not limited to, bleeding, infection, pain, stiffness, damage to nerves or vessels, recurrence, blood clot. Despite these risks, the patient elected to proceed. 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 Global grade 2 and 3 changes throughout the tibia and the femur, no loose bodies Notch: PCL was intact. ACL fibers were intact although they were slightly loose but he still provided a firm endpoint with excursion. However, they were easily removed with a shaver. The femoral tunnel was identified and any allograft material was removed. The tibial base was also identified and likewise any graft material was removed. Lateral Compartment: No meniscal tear, intact meniscal root, some areas of grade I chondromalacia, no loose bodies Patellofemoral Compartment: No significant chondromalacia, no apparent patellar maltracking Procedure Description: Laura was greeted in the preoperative holding area where the correct side was identified and marked. The consent was reviewed with the patient and signed. The history and physical was updated. All questions were answered. Laura was taken back to the operating room. The patient was placed into the supine position on the operating room table. A nonsterile tourniquet was placed high onto the leg but not used. All bony prominences were well padded. Prophylactic antibiotics in the form of cefazolin were administered. The left leg was then prepped with Chloraprep and draped in a standard fashion with stockinette and extremity drape. A timeout to confirm correct identity, side and site, procedure, allergies, anesthesia, and medical concerns was performed. The leg was placed into a pneumatic leg herring, [id number]. A standard lateral portal was made at the lateral border of the patella tendon in line with the inferior pole of the patella, soft spot. The skin and deep tissue was incised sharply and the blunt trochar was inserted atraumatically. A diagnostic arthroscopy was performed and the findings are listed above. The suprapatellar pouch had mild inflammatory changes. The patellofemoral articulation showed no articular damage as well as good tracking. The lateral gutter had no loose bodies and the medial gutter had no loose bodies. The knee was brought into some valgus stress in extension to open the medial compartment. A medial portal was made, localized by a spinal needle. The portal was created with an #11 blade through skin and capsule under direct visualization avoiding any meniscal injury. A probe was then inserted into the medial compartment. The medial compartment was fully inspected. The chondral surface of the tibia showed global grade 2 and grade III chondromalacia and the surface of the femur showed global grade II and III chondromalacia with focal areas of grade 4 over the distal extent. The medial meniscus had previously remove meniscal tear with deficient posterior horn tissue. The notch was then inspected which showed an intact ACL and an intact PCL. The ACL was diminutive and the tissue was somewhat lax although it still provide a stopped anterior translation. As per the plan, this was removed with the shaver. It did not remove with any significant difficulty. I then focused on the femoral tunnel in the hyperflexed position. I removed any remnant tissue which was easily removable. The tunnel was able to enter and there was an opening for about 1 cm in depth. However, at the depth of the tunnel there was solid bone. There was no screw material. There was no bone graft seen inside the tunnel. Similarly, I debrided down the tibial base and removed any extra tissue which was in this area. The leg was then brought into a figure of 4 position. The lateral compartment was fully inspected with the arthroscope and a probe. The chondral surface of the lateral femur showed very minimal chondromalacia. The chondral surface of the lateral tibia showed no significant chondromalacia. The lateral meniscus had no meniscal tear. I then opened up the medial proximal tibial incision. This was sharply dissected through skin and subcutaneous fat down to the fascia overlying the proximal, medial tibia. This was incised longitudinally down to the tibia. There is no tunnel apparent. Therefore, I placed the tibial tunnel guide into the knee over the footprint and remnant tunnel at the level of the notch. However through the total of 55 degrees as per the operative note and durable wire in this area. In this location I was able to find a soft area of bone measuring only 2 x 3 mm. A curette was used to clean this out but there was no gross tunnel that was present. I removed any tissue which was easily removable I did not redrill the tunnel. There is no tissue which appeared to be necrotic or diseased. From within the notch I grab some tissue from around the base of the ACL footprint and some synovium from the anterior knee and sent this to pathology for evaluation. The arthroscope was brought back into the suprapatellar pouch and the leg was in full extension. The knee was thoroughly irrigated with the arthroscopic fluid on high flow and pressure. Inflow was stopped and excess fluid was removed. The tissue of the medial proximal tibia was closed with a 0 Vicryl. This was then closed following with a 2-0 Vicryl. The skin of the wounds were closed with 4-0 Monocryl. They were dressed with Xeroform, 4x4 gauze, ABD pad, Kerlix and an JALYN wrap. A cryo-cuff was applied. The patient tolerated the procedure well and was returned to the Same Day Surgery area in a stable condition suffering no known complication.
== END 2020-03-09 11:10 | disposition home or self-care (01) ==
PROVIDERS: Visit Provider Student in an Organized Health Care Education/Training Program
PROC: (CPT 29875; principal; 2020-03-09 07:30)
PROC: (CPT 29870; 2020-03-09 07:30)
DX: T85.848A Pain due to other internal prosthetic devices, implants and grafts, initial encounter (principal); M25.562 Pain in left knee; M94.262 Chondromalacia, left knee; S83.512S Sprain of anterior cruciate ligament of left knee, sequela; X58.XXXS Exposure to other specified factors, sequela; F17.210 Nicotine dependence, cigarettes, uncomplicated
CPT/HCPCS: 29875; 88305; NC; 88312; E0114; J0690; J1885; J2001; J2250; J2370; J2405; J2704

== ENCOUNTER 2020-07-30 01:56 | Outpatient (CLI) | payer BC, SELFPAY ==
--- NOTE | 2020-07-30 08:45 | DI.MAMMO_ITS ---
EXAM: MAMMO SCREENING CLINICAL HISTORY: screening,Z12.39 TECHNIQUE: Mammograms were interpreted according to the usual protocol including computer analysis w [employer] CAD system, tomosynthesis and C-view imaging. COMPARISON: 2010 through 2018 FINDINGS: The breasts are composed of scattered fibroglandular densities, Breast Density category B. No suspicious masses or suspicious microcalcifications are seen. No skin thickening or abnormal axillary lymph nodes are seen. There has been no significant change from prior exams. IMPRESSION: BI-RADS Category 1, Negative mammogram Yearly screening mammography is recommended. Breast Density - Category B, scattered fibroglandular densities. A negative radiographic report should not delay biopsy if a dominant or clinically suspicious mass is present. Up to ten percent of cancers are not identified on mammography. A negative report may reinforce clinical impression. Adenosis and dense breasts may obscure an underlying neoplasm. False positive reports average 6 to 10%. Patient will receive a letter notifying them of these results.
== END 2020-07-30 02:16 ==
DX: Z12.31 Encounter for screening mammogram for malignant neoplasm of breast (principal); R92.2 Inconclusive mammogram
CPT/HCPCS: 77063; 77067

== ENCOUNTER 2020-09-14 12:54 | Outpatient (REF) | payer BC, SELFPAY ==
[2020-09-14 15:41] LABS: Bilirubin Negative (Negative); Blood Small (Negative); Clarity Clear (Clear); Glucose Negative (Negative); Ketones Negative (Negative); Leukocyte Esterase Negative (Negative); Nitrite Negative (Negative); Specific Gravity 1.015 (1.005-1.025); Urobilinogen 0.2 EU/dL (Up TO 0.2); pH 6.5 (5-8)
[2020-09-14 15:51] LABS: Bacteria Negative HPF (Negative); C & S Indicated? No; Casts Negative LPF (Negative); Crystals Negative HPF (Negative); Epithelial Cells Few HPF (Negative); Mucus Negative (Negative); RBC 0-2 HPF (0-2)
[2020-09-15 18:03] LABS: Abs Immature Grans 0.03 10^3/uL (0.0-0.06); Absolute Basophil Count 0.09 10^3/uL (0.0-0.2); Absolute Eosinophil Count 0.19 10^3/uL (0.0-0.7); Absolute Lymphocyte Count 3.38 10^3/uL (1.2-3.4); Absolute Neutrophil Count 6.84 10^3/uL (1.2-6.7); Basophils % 0.8; Eosinophils % 1.7; HCT 41.3 % (36.0-46.0); HGB 13.5 g/dL (11.2-15.7); Immature Grans % 0.3; MCH 29.3 pg (27.0-33.0); MCHC 32.7 % (32.0-36.0); MCV 89.6 fL (80-95); MPV 11.3 fL (8.0-11.0); Monocytes % 6.6; Neutrophils % 60.6; Nucleated RBC 0 %; Platelet Count 278 10^3/uL (130-400); RBC 4.61 10^6/uL (3.93-5.22); RDW 12.4 % (11.7-14.6); RDW-SD 40.5 fL; WBC 11.28 10^3/uL (4.4-10.8)
[2020-09-15 18:05] LABS: Absolute Monocyte Count 0.74 10^3/uL (0.1-0.8)
[2020-09-15 18:11] LABS: Anion Gap 11.4 mmol/L (3-11); BUN 20 mg/dL (7-18); CO2 26.6 mmol/L (21.0-32.0); CREATININE 0.86 mg/dL (0.55-1.02); Chloride 106 mmol/L (98-107); Glucose 71 mg/dL (74-106); Potassium 4.4 mmol/L (3.5-5.1); Sodium 144 mmol/L (136-145)
== END 2020-09-14 13:14 ==
LOC: LBN 12:54
PROVIDERS: Visit Provider Nurse Practitioner Family
DX: R31.9 Hematuria, unspecified (principal)
CPT/HCPCS: 80048; 81003; 81015; 85025

== ENCOUNTER 2020-09-21 12:01 | Outpatient (CLI) | payer BC, SELFPAY ==
--- NOTE | 2020-09-21 11:45 | DI.RAD_ITS ---
EXAM: XR LUMBAR SPINE AP, LAT CLINICAL HISTORY: eval low back for arthritis. TECHNIQUE: 2D digital imaging was performed. COMPARISON: None. FINDINGS: There are 5 lumbar type vertebral bodies. There is normal alignment. No spondylolysis or spondyloli sthesis is present. There is disc space narrowing and a vacuum disc at L5-S1. Endplate osteophytes are seen at multiple levels of the lumbar spine. There do appear to be degenerative changes of the f acets at L4-5 and L5-S1. No acute fracture or subluxation is present. IMPRESSION: Mild degenerative changes in the lumbar spine. DATA REPOSITORY: RADIATION DOSE DELIVERED:
== END 2020-09-21 12:21 ==
PROVIDERS: Visit Provider Student in an Organized Health Care Education/Training Program
DX: M47.816 Spondylosis without myelopathy or radiculopathy, lumbar region (principal)
CPT/HCPCS: 72100

== ENCOUNTER 2020-10-08 01:01 | Outpatient (CLI) | payer BC, SELFPAY ==
--- NOTE | 2020-10-08 08:15 | DI.MRI_ITS ---
EXAM: MR LUMBAR SPINE WO the CLINICAL HISTORY: lumbar radiculopathy,m54.16, pain. TECHNIQUE: Multiplanar multisequence MRI of the Lumbar spine was performed. COMPARISON: CR XR LUMBAR SPINE AP, LAT from 09/21/2020 CR XR LUMBAR SPINE AP, LAT from 09/21/2020 FINDINGS: Conus medullaris is at the T12-L1 level. There is no evidence of conus mass nor subjacent clumping o f intrathecal nerve roots to suggest arachnoiditis. The distal thecal sac appears unremarkable.There is no evidence of Tarlov intrasacral cysts nor other significant findings within the sacral canal Bones:There are no fractures nor ominous osseous lesions in the lumbar vertebral bodies. With respect to the individual levels... T12-L1: Unremarkable L1-2: Normal disc height and signal. No disc herniation nor central canal stenosis.No foraminal steno sis L2-3: Normal disc height. No disc herniation nor central canal stenosis.No foraminal stenosis.No face t arthropathy. L3-4: Normal disc height. There is broad relatively symmetrical annular bulging. This results in mi ld flattening of the anterior thecal sac. Central canal dimensions are lower normal. Mild foraminal stenosis. No facet arthropathy. L4-5: Normal disc height. There is an element of anterolisthesis of L4 upon L5 due to degenerative c hanges in the facet joints bilaterally. This is approximately 3 millimeters anterior slippage of L4 upon L5. Results in an element of central canal stenosis (mild-moderate). No prominent foraminal st enosis. Mild right-sided foraminal stenosis. No significant left-sided foraminal stenosis. L5-S1: Advanced disc space narrowing with almost complete loss of disc material. There is a posterio r disc herniation which extends posteriorly 3.5 millimeters and is approximately 7 millimeters wide. Slightly indents the anterior thecal sac centrally. This is superimposed upon annular bulging which extends into the floor of the exiting neural foramina bilaterally. There is mild-moderate foraminal stenosis on the left side due to the annular bulging plus degenerative changes in the facet joint. Mild-moderate foraminal stenosis also evident on the right side for similar reasons. The amount of f acet joint degenerative change at this level is minimal. Soft tissues: The visualized SI joints and sacrum appear unremarkable. Paraspinal soft tissues appear unremarkable IMPRESSION: 1. Posterior disc herniation at L5-S1 as described above. This extends posteriorly 3-4 millimeters a nd 7 millimeters wide. This is superimposed upon advanced narrowing of the disc space at this level. 2. Degenerative anterolisthesis of L4 upon L5 approximately 3 millimeters due to severe degenerative changes in both facet joints. This results in mild-moderate central canal stenosis. Only mild franchesca inal stenosis. Recommends standing flexion and extension lateral views to determine the true amount of slippage of L4 upon L5 during everyday activity. 3. No ominous osseous lesions. 4. DATA REPOSITORY:
== END 2020-10-08 01:21 ==
PROVIDERS: Visit Provider Student in an Organized Health Care Education/Training Program
DX: M51.17 Intervertebral disc disorders with radiculopathy, lumbosacral region (principal); M48.061 Spinal stenosis, lumbar region without neurogenic claudication; M43.16 Spondylolisthesis, lumbar region
CPT/HCPCS: 72148

== ENCOUNTER 2020-10-15 21:51 | Outpatient (REF) | payer BC, SELFPAY ==
[2020-10-15 22:23] LABS: Bilirubin Negative (Negative); Blood Moderate (Negative); Clarity Sl Cloudy (Clear); Glucose Negative (Negative); Ketones Negative (Negative); Leukocyte Esterase Trace (Negative); Nitrite Negative (Negative); Urobilinogen 0.2 EU/dL (Up TO 0.2)
[2020-10-15 22:38] LABS: Bacteria Moderate HPF (Negative); C & S Indicated? C&S Done As Ordered; Casts Negative LPF (Negative); Crystals Negative HPF (Negative); Epithelial Cells Few HPF (Negative); Mucus Negative (Negative)
== END 2020-10-15 22:11 ==
LOC: LBN 21:51
DX: R30.0 Dysuria (principal); M54.5 Low back pain
CPT/HCPCS: 87077; 81003; 81015; 87086; 87186

== ENCOUNTER 2020-10-29 01:57 | Outpatient (CLI) | payer BC, SELFPAY ==
--- NOTE | 2020-10-29 | DI.MRI_ITS ---
EXAM: MR LOWER JOINT LT WO CLINICAL HISTORY: INTERNAL DERANGEMENT LT KNEE, M23.92, RUPTURE OF ANTERIOR CRUCIATE LIGAMENT TECHNIQUE: Multiplanar multisequence MRI of the knee was performed. COMPARISON: MR MR lower joint LT wo from 12/02/2018 CR XR KNEE 4 VIEW LEFT from 10/17/2020 FINDINGS: EFFUSION: There is a small joint effusion. There is no Hui cyst in the popliteal fossa. MARROW:There is bone contusion signal in the posterior aspect of the lateral tibial plateau, not evid ent on the prior study 2 years ago (November 2018). There are no osteochondral defects. There is a d egenerative cyst now evident in the inner aspect of the lateral femoral condyle which measures 1.2 x 0.7 x 0.9 cm PATELLOFEMORAL COMPARTMENT: The quadriceps tendon is intact. The patellar ligament is intact. There is mild uniform thinning of the retropatellar cartilage. No fissure nor osteochondral defect a t this level and no abnormal intraosseous signal in the patella.There is no intraosseous signal to amado ggest recent patellar dislocation. There are no patellar retinacular tears. CRUCIATE LIGAMENTS: The anterior cruciate ligament graft is no longer evident, consistent with full-t hickness tearingsome degenerative signal seen in the upper PCL but without full thickness tear. Lowe r half of the posterior cruciate ligament appears unremarkable. MEDIAL COMPARTMENT/MEDIAL MENISCUS: There is truncation of the medial meniscus posterior horn, more s o than previous and probably postsurgical. There is a tiny focus of signal abnormality in the most i nferior aspect of the anterior horn.. The meniscal root is intact.. There are mild degenerative cartilage changes over the medial femoral condyle. No osteochondral defe ct. MEDIAL COLLATERAL LIGAMENT: No evidence of acute tear LATERAL COMPARTMENT/LATERAL MENISCUS: There is no evidence of lateral meniscal tear.No prominent jean marie dral defects or osteochondral defects. There is significant subarticular bone edema in the posterior aspect of the lateral tibial plateau, possibly pivot shift-type. ILIOTIBIAL BAND: Intact LATERAL COLLATERAL LIGAMENT COMPLEX: The fibular collateral ligament is intact. The biceps femoris t endon is intact.Popliteus muscle and tendon are intact. IMPRESSION: 1. The ACL graft is completely attenuated consistent with full-thickness tear. This does not appear acute. 2. There is bone edema in the posterior aspect of the lateral tibial plateau which was not evident on the November 2018 study and possibly related to pivot-shift injury. No other areas of bone contusion evident. 3. The posterior horn of the medial meniscus is truncated, more so than previous and correlation with interval surgery since the most recent MRI scan of November 2018 is recommended. Otherwise this woul d be considered an element of tear. Anterior to the medial meniscus appears intact and there are is no evidence of significant meniscal extrusion nor intrusion. There are no tears of the lateral menis cus evident.. 4. No acute tears of the collateral ligaments nor of the iliotibial band. 5. Small joint effusion. No Hui cysts. DATA REPOSITORY:
== END 2020-10-29 02:17 ==
PROVIDERS: Visit Provider Orthopaedic Surgery
DX: M23.92 Unspecified internal derangement of left knee (principal); T84.490A Other mechanical complication of muscle and tendon graft, initial encounter; M25.462 Effusion, left knee
CPT/HCPCS: 73721

== ENCOUNTER 2020-12-24 03:01 | Outpatient (CLI) | payer BC, SELFPAY ==
[2020-12-24 14:32] LABS: TSH (W/Ref FT4) 1.69 uIU/mL (0.36-3.74); Vitamin B12 665 pg/mL (193-986)
[2020-12-25 14:16] LABS: Albumin 63.7 % (55.8-66.1); Total Protein 6.8 g/dL (6.3-8.2)
== END 2020-12-24 03:02 | disposition home or self-care (01) ==
LOC: LBO 03:01
PROVIDERS: Visit Provider Psychiatry & Neurology Neurology
DX: G62.9 Polyneuropathy, unspecified (principal); R31.9 Hematuria, unspecified; N39.0 Urinary tract infection, site not specified; R73.09 Other abnormal glucose
CPT/HCPCS: 36415; 82607; 83036; 84165; 84443; 87086

== ENCOUNTER 2020-12-26 09:01 | Outpatient (CLI) | payer BC, SELFPAY ==
[2020-12-27 11:34] LABS: COVID-19 RT-PCR UVMMC Result Negative (Negative)
== END 2020-12-26 09:02 | disposition home or self-care (01) ==
LOC: LBO 09:02
DX: Z20.822 Contact with and (suspected) exposure to COVID-19 (principal)
CPT/HCPCS: U0003

== ENCOUNTER 2021-01-03 08:03 | Outpatient (CLI) | payer BC, SELFPAY ==
--- NOTE | 2021-01-03 06:00 | DI.RAD_ITS ---
EXAM: XR PAIN CLINIC LUMBAR SP 2V CLINICAL HISTORY: Dx: Lumbar Radiculopathy TECHNIQUE: 2D and realtime digital imaging was performed. CONTRAST MATERIAL: Refer to procedure report. COMPARISON: No exams were available for comparison FINDINGS: Fluoroscopy was provided for Dr. Tay during the performance of a transforaminal epidural steroid in jection. Please refer to the procedure report for complete details. Fluoro time: 61.3 seconds IMPRESSION:
[2021-01-03 08:16] VITALS: BP 117/66; PULSE 82; RESP 17; TEMP 36.7; O2SAT 94
--- NOTE | 2021-01-03 08:49 | PDOC.PAIN_ITS ---
Pain Clinic Procedure Note Procedure Note Procedure Note: LUMBAR / SACRAL TRANSFORAMINAL INJECTION at the Left L5 ROBB THURMAN has been referred to the [facility] for a transforaminal nerve root block and steroid injection. COMMENTS: I did review her recent lumbar spine MRI, EMG/NCV with Dr. Nunez and her recent evaluation in our clinic. She has a left L5 radiculopathy confirmed on electrodiagnostic study. Dx: Lumbosacral radiculopathy Patient was interviewed and the medical record reviewed. There were no medical, pharmacologic, radiographic or other structural contraindications to attempting fluoroscopically guided transforaminal nerve root block and epidural steroid injection. Risks and expected side effects as well as potential benefit of the procedure were reviewed and voiced concerns addressed. The printed consent form was signed and witnessed. Standard time-out procedure was performed. Patient was placed in the prone position on the fluoroscopy table and automated blood pressure cuff and pulse oximeter applied. Fluoroscopy was utilized to identify the left L5 neural foramen between L5 and S1. A skin ros was made for the needle insertion site. A Chlorhexadine prep was carried out, and sterile drapes were applied. Local anesthesia was achieved in the skin and subcutaneous tissues. A 22 gauge 5 curved tip spinal needle was then inserted, advanced with fluoroscopic guidance into the neural foramen, confirmed on the lateral view. After negative aspiration, 2 ml of Omnipaque 240 was injected confirming position in A/P and lateral views. This showed a good spread of dye transforaminally into the epidural space. There was no vascular update with contrast injection under continuous fluoroscopy and digital substraction. 15 mg of Dexamethasone was injected, followed by 0.5 ml of 1% Xylocaine flush for the nerve root block, as well. There was no unusual discomfort expressed.The needle was withdrawn. The patient tolerated the procedure well. A Band-Aid was applied. Vital signs were stable throughout the procedure and were as recorded in nursing records. If given, dosages of intravenous drugs for anxiolysis and analgesia were documented in nursing records. Follow up plans and appointments were discussed. Post procedure instruction was given as documented in nursing records and patient was discharged in the care of an identified delivery driver/customer service. COMMENTS:There was what appeared to be a bone spur at the external entry of the left L5 neuroforamina. This required me to readjust my entry point for the procedure about 2 cm laterally so that I could slip the needle under the spur to reach the target.. Sherman Tay DO, MPH Pain Management CC: Carolyn Mcdonald APRN
[2021-01-03] MEDS: Omnipaque 240 MG/ML 50 ML BTL IJ (08:55)
[2021-01-03] MEDS: Dexamethasone Sod. Phos./Pres-Free 10 MG/ML VIAL IJ (08:56)
[2021-01-03 09:01] VITALS: BP 116/94; PULSE 87; RESP 18; O2SAT 97
== END 2021-01-03 08:04 | disposition home or self-care (01) ==
LOC: PC 08:03
PROVIDERS: Visit Provider Preventive Medicine Occupational Medicine
DX: M54.17 Radiculopathy, lumbosacral region (principal)
CPT/HCPCS: 64483; 72100; Q9967

== ENCOUNTER 2021-01-15 22:18 | Outpatient (REF) | payer BC, SELFPAY ==
[2021-01-17 13:15] LABS: COVID-19 RT-PCR UVMMC Result Negative (Negative)
== END 2021-01-15 22:19 | disposition home or self-care (01) ==
LOC: LBN 22:18
PROVIDERS: Visit Provider Nurse Practitioner Family
DX: Z20.822 Contact with and (suspected) exposure to COVID-19 (principal)
CPT/HCPCS: U0003

== ENCOUNTER 2021-07-15 03:40 | Outpatient (CLI) | payer BC, SELFPAY ==
[2021-07-15 10:31] LABS: Source Nasal/Nares
[2021-07-15 12:50] LABS: COVID-19 PCR Negative (Negative)
== END 2021-07-15 03:41 | disposition home or self-care (01) ==
PROVIDERS: Visit Provider Student in an Organized Health Care Education/Training Program
DX: Z20.822 Contact with and (suspected) exposure to COVID-19 (principal); Z01.818 Encounter for other preprocedural examination
CPT/HCPCS: 87635

== ENCOUNTER 2021-07-15 04:19 | Outpatient (CLI) | payer BC, SELFPAY ==
[2021-07-15 09:08] LABS: HCT 38.8 % (36.0-46.0); HGB 12.7 g/dL (11.2-15.7); MCH 29.5 pg (27.0-33.0); MCHC 32.7 % (32.0-36.0); MPV 9.7 fL (8.0-11.0); Platelet Count 283 10^3/uL (130-400); RBC 4.31 10^6/uL (3.93-5.22); RDW 12.4 % (11.7-14.6); RDW-SD 41.1 fL
[2021-07-15 09:31] LABS: Anion Gap 9.9 mmol/L (3-11); BUN 13 mg/dL (7-18); CO2 28.1 mmol/L (21.0-32.0); CREATININE 0.9 mg/dL (0.55-1.02); Calcium 9.1 mg/dL (8.5-10.1); Chloride 107 mmol/L (98-107); Glucose 88 mg/dL (74-106); Potassium 4.4 mmol/L (3.5-5.1); Sodium 145 mmol/L (136-145)
== END 2021-07-15 04:20 | disposition home or self-care (01) ==
LOC: LBO 04:19
PROVIDERS: Visit Provider Student in an Organized Health Care Education/Training Program
DX: M25.562 Pain in left knee (principal); M17.12 Unilateral primary osteoarthritis, left knee; Z01.818 Encounter for other preprocedural examination; Z01.812 Encounter for preprocedural laboratory examination
CPT/HCPCS: 36415; 80048; 85027

== ENCOUNTER 2021-07-16 08:32 | Day surgery (SDC) | payer BC, SELFPAY ==
[2021-07-16] VITALS (11 sets, daily range): BP systolic 105–121; BP diastolic 60–71; PULSE 56–71; RESP 12–16; TEMP 36.1–36.7; TEMPC 36.3; O2SAT 94–97; BMI 30.2
--- NOTE | 2021-07-16 07:51 | W.PM.DSUDISC ---
Documented by User: MELONIE Capps 07/16/21 11:00 Discharge Plan Disposition Patient Disposition: HOME Condition: Stable Discharge Details Reason For Visit: Left TKA Attending Provider: Pepe Reese Primary Care Provider: Carolyn Mcdonald Home Meds and New Rx's Prescriptions: New aspirin 81 mg tablet,delayed release (DR/EC) 81 mg PO BID Qty: 60 RF: 0 celecoxib [Celebrex] 200 mg capsule 200 mg PO BID Qty: 60 RF: 0 acetaminophen [Tylenol Extra Strength] 500 mg tablet 500 mg PO Q6H PRNQty: 90 RF: 0 pantoprazole [Protonix] 40 mg tablet,delayed release (DR/EC) 40 mg PO DAILY Qty: 30 RF: 0 gabapentin 300 mg capsule 300 mg PO QHS Qty: 14 RF: 0 oxycodone 5 mg tablet 5 mg PO Q4H PRNQty: 18 RF: 0 Discontinued acetaminophen 500 mg tablet 500 mg PO Q8H PRN (Reason: pain) RF: 0 No Action Restasis 0.05 % dropperette 1 drp ophthalmic (eye) Q12H RF: 0 citalopram 10 mg tablet 10 mg PO DAILY Qty: 90 RF: 4 fluocinolone 0.025 % cream 1 applic Topical BID PRN (Reason: psoriasis) Qty: 60 RF: 0 omega-3 fatty acids-fish oil 300-1,000 mg capsule 2 cap PO DAILY RF: 0 nicotine 14 mg/24 hr patch 24 hour 1 patch transdermal Q24H Qty: 7 RF: 0 nicotine 7 mg/24 hr patch 24 hour 1 patch transdermal Q24H Qty: 14 RF: 1 epinephrine [EpiPen 2-Dylan] 0.3 MG/0.3 ML auto-injector 0.3 mg IJ PRN Qty: 1 RF: 0 sodium chloride [Isra 128] 5 % Drops 1 drp OPHTHALMIC (EYE) HS RF: 0 Discharge Instructions Additional Instructions: Total Knee Discharge Instructions Activity: The most important activity is to walk. You should try to take short walks a few times a day. It is important that when resting you work on keeping the knee straight. Avoid putting a pillow behind the knee as this will encourage flexion. Work on range of motion exercises as provided by Physical Therapy. - Start outpatient physical therapy within 2 weeks. - You should wear the STANISLAV hose on both legs for 2 weeks. You may remove these at night. You may also use any compression sock in place of the STANISLAV hose. - Utilize [employer] to review exercises, see videos on exercises and obtain basic information pertaining to your surgery and your recovery. Dressing: Remove the Souleymane wrap by 2 days after your surgery and put on the STANISLAV stocking given to you from the hospital. Keep the surgical dressing (underneath the SOULEYMANE wrap) in place for at least one week. After the first week it may be removed and replaced with light gauze and tape or nothing. The wound and dressing may get wet after 3 days but avoid soaking the dressing or otherwise it will need to be changed. Many people prefer covering the dressing with cling wrap (saran wrap) to minimize it from getting soaked. If it gets wet, just pat dry. If it starts to peel off then it will need to be changed. Medications: - You should take Tylenol and anti-inflammatory Celebrex as your primary pain control medications. If the Celebrex is too expensive or not covered, please call the office for another alternative (Advil/Ibuprofen or Naproxen/Aleve) - You have been prescribed a stronger pain medication Oxycodone for breakthrough pain, take as needed as prescribed. - You have also been prescribed a stomach acid reduction agent Pantoprozole to help reduce stomach acid and reflux. - You have been prescribed Gabapentin to take at night for restlessness and nerve pain. - You will be taking Aspirin 81mg twice a day for DVT prevention unless instructed otherwise. - If you have constipation you should take Colace or Miralax (both [id number]). It takes most people 3-4 days to have a bowel movement. Follow-up: 2 weeks If you have any acute concerns or questions, please do not hesitate to contact the office at [phone]. You may contact Dr. Reese with any questions after hours through the hospital at [phone] or on his cell phone at [phone]. 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: Status: None Documented by User: Pepe Reese MD 07/16/21 15:09 Discharge Plan Disposition Patient Disposition: HOME Condition: Stable Discharge Details Reason For Visit: Left TKA Attending Provider: Pepe Reese Primary Care Provider: Carolyn Mcdonald [place] Meds and New Rx's Prescriptions: New aspirin 81 mg tablet,delayed release (DR/EC) 81 mg PO BID Qty: 60 RF: 0 celecoxib [Celebrex] 200 mg capsule 200 mg PO BID Qty: 60 RF: 0 acetaminophen [Tylenol Extra Strength] 500 mg tablet 500 mg PO Q6H PRNQty: 90 RF: 0 pantoprazole [Protonix] 40 mg tablet,delayed release (DR/EC) 40 mg PO DAILY Qty: 30 RF: 0 gabapentin 300 mg capsule 300 mg PO QHS Qty: 14 RF: 0 oxycodone 5 mg tablet 5 mg PO Q4H PRNQty: 18 RF: 0 Discontinued acetaminophen 500 mg tablet 500 mg PO Q8H PRN (Reason: pain) RF: 0 No Action Restasis 0.05 % dropperette 1 drp ophthalmic (eye) Q12H RF: 0 citalopram 10 mg tablet 10 mg PO DAILY Qty: 90 RF: 4 fluocinolone 0.025 % cream 1 applic Topical BID PRN (Reason: psoriasis) Qty: 60 RF: 0 omega-3 fatty acids-fish oil 300-1,000 mg capsule 2 cap PO DAILY RF: 0 nicotine 14 mg/24 hr patch 24 hour 1 patch transdermal Q24H Qty: 7 RF: 0 nicotine 7 mg/24 hr patch 24 hour 1 patch transdermal Q24H Qty: 14 RF: 1 epinephrine [EpiPen 2-Dylan] 0.3 MG/0.3 ML auto-injector 0.3 mg IJ PRN Qty: 1 RF: 0 sodium chloride [Isra 128] 5 % Drops 1 drp OPHTHALMIC (EYE) HS RF: 0 Discharge Instructions Additional Instructions: Total Knee Discharge Instructions Activity: The most important activity is to walk. You should try to take short walks a few times a day. It is important that when resting you work on keeping the knee straight. Avoid putting a pillow behind the knee as this will encourage flexion. Work on range of motion exercises as provided by Physical Therapy. - Start outpatient physical therapy within 2 weeks. - You should wear the STANISLAV hose on both legs for 2 weeks. You may remove these at night. You may also use any compression sock in place of the STANISLAV hose. - Utilize [employer] to review exercises, see videos on exercises and obtain basic information pertaining to your surgery and your recovery. Dressing: Remove the Souleymane wrap by 2 days after your surgery and put on the STANISLAV stocking given to you from the hospital. Keep the surgical dressing (underneath the SOULEYMANE wrap) in place for at least one week. After the first week it may be removed and replaced with light gauze and tape or nothing. The wound and dressing may get wet after 3 days but avoid soaking the dressing or otherwise it will need to be changed. Many people prefer covering the dressing with cling wrap (saran wrap) to minimize it from getting soaked. If it gets wet, just pat dry. If it starts to peel off then it will need to be changed. Medications: - You should take Tylenol and anti-inflammatory Celebrex as your primary pain control medications. If the Celebrex is too expensive or not covered, please call the office for another alternative (Advil/Ibuprofen or Naproxen/Aleve) - You have been prescribed a stronger pain medication Oxycodone for breakthrough pain, take as needed as prescribed. - You have also been prescribed a stomach acid reduction agent Pantoprozole to help reduce stomach acid and reflux. - You have been prescribed Gabapentin to take at night for restlessness and nerve pain. - You will be taking Aspirin 81mg twice a day for DVT prevention unless instructed otherwise. - If you have constipation you should take Colace or Miralax (both [id number]). It takes most people 3-4 days to have a bowel movement. Follow-up: 2 weeks If you have any acute concerns or questions, please do not hesitate to contact the office at [phone]. You may contact Dr. Reese with any questions after hours through the hospital at [phone] or on his cell phone at [phone]. Stand Alone Forms: Anesthesia Discharge Inst., Anes.Nerve Block Instructions Referrals: Pepe Reese MD [ [facility] STAFF PHYSICIAN] - 07/29/21 11:00 am Equipment/Supplies: Walker Activity:: Activity as Tolerated Remove Dressings/Wound Care:: Do Not Remove Shower/Bathe:: 72 hours Diet:: As Tolerated Discharge Orders Discharge Orders: Discharge Order (Routine); Ordered 07/16/21 Ordered By: Daphne Penaloza
[2021-07-16] MEDS: Gabapentin 300 MG CAP PO (09:30)
[2021-07-16] MEDS: Celecoxib 200 MG CAP 400 MG PO (09:30)
[2021-07-16] MEDS: Acetaminophen 500 MG TAB 1000 MG PO (09:30)
[2021-07-16] MEDS: Lactated Ringers 1,000 ML 80 ML IV (10:05)
--- NOTE | 2021-07-16 10:08 | W.ANESPRE ---
General Info Date of Service Date Performed: 07/16/21 Height: 5 ft 2 in Weight: 75.1 kg Body Mass Index (BMI): 30.2 Surgical Procedure: Operation Date: 07/16/21 12:40 Proposed Procedures Side Surgeon p Knee Total Arthroplasty Left Pepe Reese MD Meds Allergies and Home Medications Allergies Allergy/AdvReac Type Severity Reaction Status Date / Time oregano Allergy Severe Anaphylaxsi Verified 07/16/21 09:02 s stillaguamish Allergy Intermediate Nasal Verified 07/16/21 09:02 Congestion pineapple AdvReac Intermediate some Verified 07/16/21 09:02 swelling of tongue lobster Allergy Intermediate Other (See Uncoded 07/16/21 09:02 Comment) Home Medication Medication Instructions Recorded epinephrine [EpiPen 2-Dylan] 0.3 mg IJ PRN #1 pkt 02/21/14 sodium chloride [Isra 128] 1 drp OPHTHALMIC (EYE) HS 01/21/19 omega-3 fatty acids-fish oil 300 2 cap PO DAILY cap 06/22/19 mg-1,000 mg capsule citalopram 10 mg tablet 10 mg PO DAILY #90 tab-cap 12/10/20 fluocinolone 0.025 % topical cream 1 applic TOPICAL BID PRN #60 gm 12/10/20 cyclosporine 0.05 % eye drops in a 1 drp OPHTHALMIC (EYE) Q12H 05/27/21 dropperette nicotine 14 mg/24 hr daily 1 patch TRANSDERMAL Q24H #7 ea 06/25/21 transdermal patch nicotine 7 mg/24 hr daily 1 patch TRANSDERMAL Q24H #14 ea 06/25/21 transdermal patch acetaminophen [Tylenol Extra 500 mg PO Q6H PRN #90 tab 07/16/21 Strength] aspirin 81 mg PO BID #60 tab 07/16/21 celecoxib [Celebrex] 200 mg PO BID #60 cap 07/16/21 gabapentin 300 mg PO QHS #14 cap 07/16/21 oxycodone 5 mg PO Q4H PRN #18 tab 07/16/21 pantoprazole [Protonix] 40 mg PO DAILY #30 tab 07/16/21 Current Visit Medications: Current Medications Generic Name Dose Route Start Last Admin Trade Name Freq PRN Reason Stop Dose Admin Acetaminophen 1,000 mg 07/16/21 06:00 07/16/21 09:30 Acetaminophen 500 Mg Tab PO 07/16/21 16:00 1,000 mg PREOP COLLINS Administration Acetaminophen 1,000 mg 07/16/21 14:00 Acetaminophen 500 Mg Tab PO TID COLLINS Aspirin 81 mg 07/16/21 20:00 Aspirin E.C. 81 Mg Tabec PO BID COLLINS Celecoxib 400 mg 07/16/21 06:00 07/16/21 09:30 Celecoxib 200 Mg Cap PO 07/16/21 16:00 400 mg PREOP COLLINS Administration Celecoxib 200 mg 07/16/21 20:00 Celecoxib 200 Mg Cap PO BID COLLINS Docusate Sodium 100 mg 07/16/21 07:50 Docusate Sodium 100 Mg Cap PO BID PRN PRN Constipation Gabapentin 300 mg 07/16/21 06:00 07/16/21 09:30 Gabapentin 300 Mg Cap PO 07/16/21 16:00 300 mg PREOP COLLINS Administration Gabapentin 300 mg 07/16/21 22:00 Gabapentin 300 Mg Cap PO HS COLLINS Hydromorphone HCl 0.5 mg 07/16/21 07:50 Hydromorphone 2 Mg/Ml Vial IVP Q2H PRN PRN Tranexamic Acid 1,000 mg/ 60 mls @ 360 mls/hr 07/16/21 06:00 Sodium Chloride IVPB 07/16/21 16:00 PREOP COLLINS Tranexamic Acid 1,000 mg/ 60 mls @ 360 mls/hr 07/16/21 06:00 Sodium Chloride IVPB 07/16/21 16:00 DIRECTED [facility] Ringer's Solution 1,000 mls @ 80 mls/hr 07/16/21 06:00 IV 08/14/21 23:59 INFUSION COLLINS Cefazolin Sodium 2,000 mg/ 100 mls @ 200 mls/hr 07/16/21 06:00 Sodium Chloride IVPB 07/16/21 16:00 PREOP COLLINS Cefazolin Sodium/Dextrose 1 gm in 50 mls @ 100 mls/hr 07/16/21 17:00 Ancef Duplex IVPB 07/17/21 09:29 Q8H COLLINS IV Miscellaneous Supplies 1 each 07/16/21 06:00 Iv Access IV 08/14/21 23:59 DIRECTED COLLINS Ondansetron HCl 4 mg 07/16/21 07:50 Ondansetron 4 Mg/2 Ml Vial IVP Q6H PRN PRN Nausea Oxycodone HCl 0 mg 07/16/21 07:50 Oxycodone 5 Mg Tab PO Q3H PRN PRN Pain Pantoprazole Sodium 40 mg 07/17/21 08:00 Pantoprazole 40 Mg Tabcr PO DAILY@0730 COLLINS Sodium Chloride 0 ml 07/16/21 06:00 Normal Saline Flush 10 Ml Syr IV 08/14/21 23:59 PRN PRN Sodium Chloride 0 ml 07/16/21 06:00 Normal Saline 10 Ml Vial IJ 08/14/21 23:59 DIRECTED PRN Sterile Water 0 ml 07/16/21 06:00 Water,Injection,Sterile 10 Ml Vial IJ 08/14/21 23:59 DIRECTED PRN PFSH Active Problems Active Problems: Problem Status Onset Code Vascular lesion 08/03/17 I99.9 Smoker F17.200 Restless legs 12/21/12 G25.81 Neck pain 12/21/12 M54.2 Left ACL tear 08/07/17 S83.512A Keratosis, seborrheic 08/03/17 L82.1 Increased BMI 11/12/16 R63.8 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 Effusion of left knee 01/27/18 M25.462 Colon polyp 05/04/14 K63.5 Anxiety F41.9 Allergy history unknown 11/07/15 Z78.9 Abdominal pain of unknown cause 08/13/16 R10.9 Abdominal bloating 08/03/13 R14.0 Tear of medial meniscus of left knee S83.242A Pain from implanted hardware T85.848A Sciatica M54.30 Small fiber neuropathy G62.9 Osteoarthritis of left knee M17.12 Dysuria R30.0 Trigger thumb of right hand M65.311 Hematuria R31.9 Herpetic lesion B00.9 Knee pain, left M25.562 Medical History Medical History (Updated 07/16/21 @ 10:28 by Jenae Barrett) Abdominal bloating Abdominal pain Anxiety Colonic polyp Dysuria Effusion, left knee 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 Restless legs Rupture of anterior cruciate ligament of knee Seborrheic keratosis Smoker Trigger thumb of right hand Injection: 09/21/2020 UTI (urinary tract infection) Vascular lesion Surgical History Surgical History Colonoscopy - MAC 2005 2013 History of arthroscopic knee surgery x4 on left including ACL repair History of repair of ACL Vaginal hysterectomy (12/23/01) HAS BOTH OVARIES Tobacco Smoking/Tobacco Use Status: Current every day Tobacco Type: cigarettes Passive smoking exposure: Yes Quit Status: has quit before Second hand exposure: Yes Counseling given: patient declined Alcohol Alcohol Intake: current Alcohol intake frequency: a few times a week Alcohol type: beer and wine Details: 1-2 BEERS PER WEEK Substance Use Substance use: Never Substance use type: does not use Counseling given: No Counseling provided: none Vital Signs and Lab Results Vital Signs Most Recent Vital Signs in EMR: Most Recent Vital Signs Temp Pulse Resp BP Pulse Ox 36.7 C 71 16 121/71 95 07/16/21 09:07 07/16/21 09:07 07/16/21 09:07 07/16/21 09:07 07/16/21 09:07 Lab Results Blood Type / Crossmatch: No Data to Display Complete Blood Count: White Blood Count 9.10 10^3/uL (4.4-10.8) 07/15/21 08:50 07/15/21 Red Blood Count 4.31 10^6/uL (3.93-5.22) 07/15/21 08:50 07/15/21 Hemoglobin 12.7 g/dL (11.2-15.7) 07/15/21 08:50 07/15/21 Hematocrit 38.8 % (36.0-46.0) 07/15/21 08:50 07/15/21 Platelet Count 283 10^3/uL (130-400) 07/15/21 08:50 07/15/21 Complete Metabolic Panel: Sodium Level 145 mmol/L (136-145) 07/15/21 08:50 07/15/21 Potassium Level 4.4 mmol/L (3.5-5.1) 07/15/21 08:50 07/15/21 Chloride Level 107 mmol/L (98-107) 07/15/21 08:50 07/15/21 Carbon Dioxide Level 28.1 mmol/L (21.0-32.0) 07/15/21 08:50 07/15/21 Blood Urea Nitrogen 13 mg/dL (7-18) 07/15/21 08:50 07/15/21 Creatinine 0.9 mg/dL (0.55-1.02) 07/15/21 08:50 07/15/21 Estimated GFR/1.73 m2 >= 60.00 (mL/min/1.73m2) 07/15/21 08:50 07/15/21 Calcium Level 9.1 mg/dL (8.5-10.1) 07/15/21 08:50 07/15/21 Glucose Level 88 mg/dL (74-106) 07/15/21 08:50 07/15/21 Liver Function Panel: No Data to Display Coagulation Panel: No Data to Display Cardiac Panel: No Data to Display Arterial Blood Gas: No Data to Display Venous Blood Gas: No Data to Display Pancreas Panel: No Data to Display Thyroid Panel: No Data to Display Infectious Disease: Coronavirus (COVID-19)(PCR) Negative (Negative) 07/15/21 10:31 07/15/21 Coronavirus 2019 Source Nasal/Nares 07/15/21 10:31 07/15/21 Blood Cultures: No Data to Display Toxicology Panel: No Data to Display Anesthesia Assessment and Plan Anesthesia History Personal History: No History of Anesthesia Complications Family History: No Family History of Anesthesia Complications Exercise Tolerance Exercise Tolerance: Metabolic Equivalents>4 Pertinent Negatives Pertinent Negatives: No Symptoms of GERD, No Major Cardiovascular Symptoms or Complaints, No Major Pulmonary Symptoms or Complaints and No History of CVA/TIA Cardiac & Pulmonary Exam Cardiac Exam: Normal S1/S2 Heart Sounds Pulmonary Exam: Clear Bilateral Breath Sounds Cardiac and Pulmonary Comment:: Sleep apnea, no longer uses CPAP Airway Exam Known Difficult Airway: No Mallampati Class: 2 Mouth Opening: Normal (> 3cm) Thyromental Distance: Greater than 3 cm Neck Range of Motion: Full ROM and Limited ROM Neck Circumference: Normal Teeth Condition: Normal Dentition and Other (Retainer with misplaced wire ) ASA Classification ASA Score: ASA 2 Emergency Case?: No NPO Status NPO Status: NPO Clears >2 hours, Solids >8 hours Anesthesia Plan Resuscitation Status: Full Code Anesthesia Technique: Spinal Anesthesia Airway Planned: Natural Airway Monitors Used: Standard Monitors
--- NOTE | 2021-07-16 11:25 | W.ANESNERVE ---
Nerve Block Single Injection Procedure Date and Time Date Performed: 07/16/21 Procedure Start: 10:58 Location Where Procedure Performed Procedure Location: PACU Reason Performed: Postoperative Analgesia Requesting Provider: Pepe Reese Timeout Performed Timeout Performed: Yes Monitoring Used ECG, Blood Pressure and SpO2 Sterility Sterility: Hand Hygiene, Surgical Cap, Surgical Mask and Sterile Gloves Sedation Given During Procedure Sedation Given (Indicate Dose Given): Versed IV Dose:: 3 Patient Mental Status Patient Mental Status: Sedate with meaningful communication Nerve Block 1st Nerve Block: Laterality: Left Block Type: Adductor Canal Needle / Catheter Used: 100mm SonoPlex II Local Anesthetic Bolus (Indicate Dose Given): Lidocaine used for local infiltration of skin, Injected in 3-5ml increments after negative blood aspiration and Bupivacaine 0.25% Dose:: 15 ml Additives (Indicate Dose Given): None Ultrasound: Sterile probe cover and gel used Ultrasound Image Saved?: Yes Nerve Stimulator: Not Used Paresthesia: None Procedure Tolerated: No Complications Procedure Outcome: Successful Performed By: Bo Bella Supervised By: Ibeth Garcia
[2021-07-16] MEDS: ceFAZolin 2,000 MG in Normal Saline 100 ML 200 MG IVPB (11:45)
[2021-07-16] MEDS: Bupivacaine 0.25% Pres-Free 30 ML VIAL (12:28)
[2021-07-16] MEDS: Ketorolac 30 MG/ML VIAL (12:28)
[2021-07-16] MEDS: Normal Saline 20 ML VIAL (12:28)
[2021-07-16] MEDS: fentaNYL 100 MCG/2 ML VIAL IVP ×3 (14:15→14:36)
[2021-07-16] MEDS: oxyCODONE 5 MG TAB PO (15:14)
--- NOTE | 2021-07-16 15:15 | W.ANESPOSTOP ---
Postoperative Evaluation Date, Time and Location Date Performed: 07/16/21 Time Performed: 15:15 Patient Location: Day Surgery Unit Vital Signs Most Recent Imported Vital Signs: Most Recent Vital Signs Temp Pulse Resp BP Pulse Ox 36.2 C L 56 L 14 114/61 94 07/16/21 14:40 07/16/21 14:40 07/16/21 14:40 07/16/21 14:40 07/16/21 14:40 Most Recent Manually Entered Vital Signs: Adult Blood Pressure: 105/63 Heart Rate: 63 Respirations: 14 Oxygen Saturation (%): 94 Temperature (C): 36.3 C Pain Score (0-10 Scale): 4 Pain Score Most Recent Pain Score: Most Recent Pain Score Pain Level 4 07/16/21 14:40 Assessment Mental Status: Awake (Alert & Oriented to Patient Baseline) Airway and Respiratory Function: Patent airway with normal (patient baseline) respiratory exam Cardiovascular Function: Hemodynamically Stable Hydration Status: Adequately Hydrated Nausea & Vomiting: No Nausea or Vomiting Pain: Pain is Moderate or Severe Postoperative Pain Management: Pain being addressed with medication Peripheral Nerve Block: Patient did not receive a nerve block
--- NOTE | 2021-07-16 16:23 | PT.INIE ---
Date of service: 07/16/21 Time of Service: 16:23 PT Notes Visit Reasons: Left TKA Physical Therapy Day Surgery Initial Evaluation Date: 07/16/2021 Referring Doctor: MELONIE Capps PT Orders: PT CONSULT: Status post Ortho surgery Precautions: WBAT on right LE with AD. Patient Profile/Admitting Diagnosis: Chris is a 61-year-old female with primary unilateral osteoarthritis of the left knee and osteonecrosis of the left tibia due to previous trauma, status post right total knee arthroplasty on postoperative day 0. PMHX: Medical History (Updated 07/14/21 @ 19:24 by MELONIE Capps) Abdominal bloating Abdominal pain Anxiety Colonic polyp Dysuria Effusion, left knee Nella's disease Hematuria Herpetic lesion Hx of abnormal mammogram Infection Internal derangement of left knee Knee pain, left Left ACL tear Neck pain Osteonecrosis of left tibia due to previous trauma Restless legs Rupture of anterior cruciate ligament of knee Seborrheic keratosis Smoker Trigger thumb of right hand Injection: 09/21/2020 UTI (urinary tract infection) Vascular lesion Surgical History Colonoscopy - MAC 2005 2013 History of arthroscopic knee surgery x4 on left including ACL repair History of repair of ACL Vaginal hysterectomy (12/23/01) HAS BOTH OVARIES Social History/Home Situation: Lives with in a ranch style home with 3 steps to enter with rails on both sides. 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 Independent with all aspects of ADLs prior to surgery. Has had 1 fall in the past 12 months. Equipment Owned/DME: [facility] Subjective: Patient indicates that she will be staying in a camper couple of days. Reports 4/10 pain in the right knee at rest, 5/10 pain with weightbearing, and 6/10 pain with leg raising exercise. Objective: General Observation: JALYN wraps to right LE. Cryocuff on right LE. Mental Status: Alert and oriented x4 Pain: Reports 4/10 pain in the right knee at rest, 5/10 pain with weightbearing, and 6/10 pain with leg raising exercise. ROM: Right Lower Extremity: Hip flexion WFL. Hip abduction WFL. Knee flexion WFL. Ankle dorsiflexion WFL. Ankle plantarflexion WFL. Left Lower Extremity: Hip flexion WFL. Hip abduction WFL. Knee flexion about 20 degrees to 95 degrees. Knee extension -20 degrees. Ankle dorsiflexion WFL. Ankle plantarflexion WFL. Strength: Right Lower Extremity: Hip flexors 5/5. Hip abductors 5/5. Knee flexors 5/5. Knee extensors 5/5. Ankle dorsiflexors 5/5. Ankle plantarflexors 5/5. Left Lower Extremity:Hip flexors 5/5. Hip abductors 5/5. Knee flexors 5/5. Knee extensors 5/5. Ankle dorsiflexors 5/5. Ankle plantarflexors 5/5. Sensation: Intact as to pain and light touch in bilateral lower extremities Bed Mobility/Transfers: Supine to sit independent Sit to stand contact-guard assist Stand to sit standby assist Bed to chair standby assist Gait: Instructed patient on level surface ambulation using front wheeled walker with step to gait pattern requiring standby assist with report of up to 5/10 pain in the right knee. Delphine decreased. Decreased knee flexion during swing knee extension at stance phase due to pain report. pain report decreased with lowering of walker height and verbal cueing to shift more weight to walker handle to offload R LE. Balance: Static Sitting: Normal Dynamic Sitting: Normal Static Standing: Fair Dynamic Standing: Fair Special Tests: Mobility Limitations Standardized Measure [facility] 6 clicks Basic Mobility Inpatient Short Form: Raw Score: 22 CMS Score: 21% deficit Informed Consent/Education: Patient instructed in purpose of PT consult. Packet containing TKA exercise protocol has been given to patient. Education and training on initial set of exercises that can be done at home have been completed with patient. Assessment: Chris is a 61-year-old female with primary unilateral osteoarthritis of the left knee and osteonecrosis of the left tibia due to previous trauma, status post right total knee arthroplasty on postoperative day 0. She requires the use of a front-wheeled walker for mobility ADL performance to reduce fall risk and maximize independence Patient presents with clinical signs and symptoms consistent with current/admitting diagnoses that have resulted to mobility limitations, gait instability, generalized weakness, and impairment of motor control as demonstrated by the following impairment level findings: 1. Decreased strength to left knee major muscle groups 2. Impaired standing balance 3. Limitation of joint range of motion in left knee Impairments are contributing to the following functional limitations: 1. Inability to safely ambulate without assistive device 2. Increase completion time for mobility ADL performance 3. Increased fall risk Patient is assessed as a 14350 moderate complexity based on the following: History: 61-year-old female with impairment level findings, functional limitations, and past medical history as indicated above Examination: Demonstrable impairment in strength, balance, and mobility level with underlying impairments and functional limitations as documented above Presentation: Evolving 52019 moderate complexity Decision Making: Goals: N/A. PT evaluation and 1-2 treatment sessions only for functional mobility training using recommended AD and for HEP instruction. Plan of Care/Treatment Plan: N/A. PT evaluation and 1-2 treatment session only for functional mobility training using recommended AD and for HEP instruction. DISCHARGE RECOMMENDATIONS: Home when medically cleared by orthopedic surgeon. Outpatient physical therapy in order to regain independent community ambulation without an assistive device. TREATMENT CODE/TIME: 9716 2 x 20 minutes, 9753 0 x 20 minutes beginning at 16:23 PM. Thank you for the opportunity to participate in the care of this patient. Carrie York PT, DPT, CLT [facility] [place], [place]
--- NOTE | 2021-07-17 05:59 | ROE_ITS ---
Date of service: 07/16/21 Time of Service: 13:36 Operative Note Operative Note DATE OF PROCEDURE: 07/17/21 PRE-OP DIAGNOSIS: Left Knee Osteoarthritis POST-OP DIAGNOSIS: same PROCEDURE: Left Total Knee Replacement SURGEON: Pepe Reese MARKETING ANALYTICS SPECIALIST: Daphne Penaloza ANESTHESIA TYPE: Spinal Refer to Anesthesia Record ESTIMATED BLOOD LOSS: 150 PATHOLOGY: none sent TOURNIQUET TIME: 0 COMPLICATIONS: None Patient was transported to: PACU Patient's condition: stable Implants: 1. Depuy Attune Cementless Cruciate Retaining Femoral Component, Size 5 Narrow 2. Depuy Attune Cementless Rotating Platform Tibial Component, Size 3 3. Depuy Attune 5x5 CR/RP Poly 4. Depuy Attune Patellar Component, Size 35 Indications: I have seen Laura in clinic for a complex history of left knee pain. She underwent an ACL reconstruction which continue to cause pain. She had meniscal repair completed as well as partial meniscectomy but continued to have pain. She was seen by multiple other providers who are unable to identify significant pathology or find any pain relief. She had some mild arthritic change in the knee and responded well to diagnostic injections. Therefore, I did offer knee replacement. I discussed the technical details of a knee replace ment. I explained the risks of the procedure to include, but not limited to, bleeding, infection, pain, stiffness, fracture, damage to nerves and vessels, damage to muscles and tendons, loosening, need for repeat procedure, blood clot and cardiopulmonary demise. Despite these risks, Laura elected to proceed. Findings: There was focal areas of chondromalacia over the medial trochlea, patella ridge, posterior medial tibia, and central lateral tibia. Procedure Description: Laura was greeted in the preoperative holding area where the correct side was identified and marked. The consent was reviewed with the patient and signed. The history and physical was updated. All questions were answered. Preoperative medications were administered: Acetaminophen 1000mg, Celebrex 400mg, and Gabapentin 300mg. An adductor canal block was then administered by the anesthesia team in the PACU. She was taken back to the operating room. A spinal anesthestic was then administered. The patient was placed into the supine position on the operating room table. A nonsterile tourniquet was placed high onto the leg but only used for cementing. Posts were placed for positioning during the procedure. All bony prominences were well padded. Prophylactic antibiotics in the form of Cefazolin were administered. 1g of Tranxemic Acid was given intravenously within 30 minutes of incision. The left leg was then prepped with Chloraprep and draped in a standard fashion with impervious stockinette. A second prep with Chloraprep was performed prior to application of Iodine impregnated skin protection. A timeout to confirm correct identity, side and site, procedure, allergies, anesthesia, and medical concerns was performed. With the knee in some flexion, a midline incision was made overlying the knee. Full thickness skin flaps were raised once the extensor mechanism was encountered. These were raised medially and laterally. Any bleeding was controlled with electrocautery. Once the extensor mechanism was fully exposed, a medial parapatellar arthrotomy was performed in a flexed position. All bleeding from the arthrotomy and the geniculate arteries was coagulated. A medial subperiosteal peel was performed with electrocautery to the midcoronal plane. The fat pad was removed while keeping the patellar tendon protected. The anterior distal femur synovium was removed for later visualization. The ACL and PCL were resected and the anterior horn of the lateral meniscus was transected. The knee was then flexed with the patella everted. Using a step drill, and based on preoperative templating, the femoral canal was entered. This was done with a step drill without any difficulty. The intramedullary distal femoral cut guide was inserted, set to a 5 degree valgus cut and 9mm cut thickness. The distal femoral cut guide was then held in position and pinned. With the soft tissues protected, the distal cut was performed. This was passed over a few times to ensure a planar cut. I then turned attention to the tibia. The extramedullary guide was placed onto the leg. The distal aspect was slid medial to adjust for position of center of ankle and stay in line with shaft of the tibia. Approximately 3-5 degrees of posterior slope was kept in the proximal cutting guide. The center of the guide was aligned with the PCL. The stylus was used to assess cut thickness. The medial side, most involved side, was set for a 4mm cut. This was then held in position and pinned into place with 2 additional pins and a cross pin for stability. The medial and lateral collateral ligaments were protected and the cut was performed. With this completed, it was assessed and noted to be of appropriate dimensions. The guide was removed. A spacer block was inserted and the knee was brought into extension. The 5mm spacer block provided full extension, without hyperextension and with stability of both the medial and lateral collateral ligaments was assessed. The pins from the femur and the tibia were then removed. The distal femur was then sized. The anterior stylus was placed onto the lateral ridge of the anterior femur. This indicated a size 5-narrow femur. The external rotation of the guide was adjusted to 5 degrees to match the epicondylar axis, perpendicular to [place]?s line. The 4-in-1 cutting guide was the placed. The posterior medial femur cut was evaluated and appeared of good thickness. The spacer block was inserted underneath the cutting guide and stability was confirmed in 90 degrees of flexion. An humphrey wing was used to confirm appropriate position of the anterior cut to avoid notching. This cutting guide was ensured to be flush on the cut surface and then pinned into place with headed pins. While protecting the soft tissues, quad tendon, and collateral ligaments, the anterior and posterior cuts were performed with a saw. The central two pins were removed and the posterior and anterior chamfers were cut next. The notch-cutting guide was placed. This was pinned to lateralize the femoral component as much as possible while keeping it flush on the cut surface. This was then pinned into position. A reciprocating saw was used to make the notch cut. A rasp smoothed the cut surfaces. The medial and lateral menisci were removed. A trial femoral component was then inserted, impacted down to the cut surfaces, and the lug holes were drilled. A provisional trial tibial component was placed and the knee was brought through range of motion. There was noted to be excellent extension and flexion. There was no significant instability. The patella was tracking without thumbs. A size 5mm polyethylene component provided the best range of motion and stability with less than 2mm gapping with medial and lateral stress and full extension without significant hyperextension. The tibial cut surface was fully exposed. The tibia was then sized as a 3. The tibia had been previously marked during trialing to correspond to the center of the tibial component to help with rotation. The trial was aligned to this ros, approximately rotated to the medial 1/3rd of the tibial tubercle. The trial was pinned into place. The tibia was prepared with a reamer and a keel punch and lug holes. The knee was then brought into extension and the patella was measured as 25mm. Using the patellar clamp and cut guide, this was resected to a flat surface with at least 13mm of thickness remaining. The size 35 patella fit the best. This was oriented and then clamped into position. The lugs were drilled. The trial components were removed. The final components were opened on the back table. The periosteal and capsular tissues, especially posteriorly, around the knee were then systematically injected with a periarticular cocktail consisting of 50cc 0.25% Marcaine, 30mg Ketorolac, 20cc of Exparal and 50cc of injectable saline. The knee was thoroughly irrigated with a pulse lavage and dried. Irrisept was also used to irrigate the tissues. On the back table, with the implants opened, the cement was mixed. One batch of high viscosity cement was prepared with vacuum assistance. After the cement was ready a small amount was placed on the cut surface of the patella and the patellar button was clamped into position and held. While the cement was hardening, the cementless knee components were placed. Starting with the tibial component, the tibia was subluxed anteriorly and the lug holes of the component were lined up. The tibia was then impacted with an impactor and mallet until the tibial component was in contact with the tibia. The final polyethylene component was inserted. Then, the femoral component was inserted. The lug holes were aligned and the component was impacted into position. The knee was irrigated with Irrisept chlorhexadine solution. This was allowed to sit in the knee for 3 minutes. After the cement had finally cured, approximately 15min, the clamp was removed from the patella and the knee was taken through range of motion. The patella was tracking with a no-thumbs technique. The capsule was then reapproximated with a No. 1 Vicryl at multiple locations. The capsule was finally closed with a No. 2 Stratafix, barbed suture. The second dosing of 1g TXA was started. Deep tissues were then reapproximated with 0 Vicryl and 2-0 Vicryl. The skin was closed with a running 3-0 Monocryl in a subcuticular fashion. This was reinforced with skin glue. A Mepilex silver dressing was applied along with a [id number] JALYN wrap. A CryoCuff was applied. Laura was transferred to the hospital bed without difficulty an suffering no apparent complication. She has a good prognosis. Physical therapy will start today and without restrictions, weight-bearing as tolerated. Aspirin 81mg BID will be used for DVT prophylaxis.
== END 2021-07-16 17:30 | disposition home or self-care (01) ==
LOC: SUR 08:32
PROVIDERS: Visit Provider Student in an Organized Health Care Education/Training Program
PROC: (CPT 27447; principal; 2021-07-16 12:30)
DX: M17.12 Unilateral primary osteoarthritis, left knee (principal); M87.26 Osteonecrosis due to previous trauma, tibia and fibula; F17.210 Nicotine dependence, cigarettes, uncomplicated; E06.3 Autoimmune thyroiditis
CPT/HCPCS: 27447; 97162; 97530; J0690; J1885; J2001; J2250; J2405; J3010

== ENCOUNTER 2021-07-29 11:59 | Outpatient (CLI) | payer BC, SELFPAY ==
--- NOTE | 2021-07-29 11:00 | DI.RAD_ITS ---
Exam(s) XR KNEE LT 1V EXAM: XR KNEE LT 1V CLINICAL HISTORY: 1ST POST OP L TKA. TECHNIQUE: 2D digital imaging was performed. COMPARISON: CR [id number] from 04/17/2021 FINDINGS: Single lateral view of the left knee reveals satisfactory position of the components of the prosthesi s. No fracture or loosening evident. IMPRESSION: DATA REPOSITORY: RADIATION DOSE DELIVERED:
--- NOTE | 2021-07-29 11:00 | DI.RAD_ITS ---
Exam(s) XR STANDING ALIGNMENT EXAM: XR STANDING ALIGNMENT CLINICAL HISTORY: 1st post op L TKA. TECHNIQUE: 2D digital imaging was performed. COMPARISON: CR [id number] from 04/17/2021 CR [id number] from 04/17/2021 CR LEG ALIGNMENT SERIES from 05/14/2021 CR LEG ALIGNMENT SERIES from 05/14/2021 FINDINGS: There has been interval placement of a left knee prosthesis. Components appear to be a satisfactory position alignment. No fracture or loosening. The opposite-right knee appears unremarkable as do th e ankles and hips. Bone density is normal. No osseous lesions. Sign rib IMPRESSION: DATA REPOSITORY: RADIATION DOSE DELIVERED:
== END 2021-07-29 12:00 | disposition home or self-care (01) ==
LOC: DIORS 11:59
PROVIDERS: Visit Provider Physician Assistant
DX: Z96.652 Presence of left artificial knee joint (principal); Z47.1 Aftercare following joint replacement surgery
CPT/HCPCS: 73560; 77073

== ENCOUNTER 2022-04-10 13:02 | Outpatient (CLI) | payer BC, SELFPAY ==
[2022-04-10 16:12] LABS: ALT 24 U/L (14-59); AST 16 U/L (15-37); Albumin 3.5 g/dL (3.4-5.0); Alkaline Phosphatase 82 U/L (46-116); Anion Gap 9.3 mmol/L (3-11); BUN 20 mg/dL (7-18); Bilirubin, Total 0.2 mg/dL (0.2-1.0); CO2 26.7 mmol/L (21.0-32.0); CREATININE 0.9 mg/dL (0.55-1.02); Calcium 8.9 mg/dL (8.5-10.1); Chloride 106 mmol/L (98-107); Glucose 105 mg/dL (74-106); Potassium 3.7 mmol/L (3.5-5.1); Sodium 142 mmol/L (136-145); Total Protein 6.8 g/dL (6.4-8.2)
== END 2022-04-10 13:03 | disposition home or self-care (01) ==
LOC: LBO 13:03
DX: Z00.00 Encounter for general adult medical examination without abnormal findings (principal); F41.8 Other specified anxiety disorders
CPT/HCPCS: 36415; 80053

== ENCOUNTER → 2022-05-26 02:19 | Outpatient (CLI) | payer BC, SELFPAY ==
--- NOTE | 2022-05-26 08:15 | DI.MAMMO_ITS ---
Exam(s) MAMMO SCREENING EXAM: MAMMO SCREENING CLINICAL HISTORY: screening, Z12.39. TECHNIQUE: Bilateral full field digital CC and MLO mammographic images were obtained with 3D tomosyn thesis and utilizing computer aided detection (CAD). COMPARISON: Prior mammograms were reviewed, the most recent being July 2020. FINDINGS: There has been no significant change in the appearance and distribution of the fibroglandular tissue. There are no new spiculated masses nor malignant appearing microcalcification groups. There is no significant architectural distortion nor skin thickening-retraction. IMPRESSION: No radiographic evidence of malignancy. BI-RADS Category 1 - Negative Breast Density - Category B - Scattered areas of fibroglandular density Breast density Category C or D implies that the patient has dense breast tissue. Dense breast tissue can make it harder to find cancer on a mammogram. Dense breast tissue is also associated with an incr eased risk of breast cancer. This information about the result of the mammogram report was provided to the patient to raise their awareness. Use this report when you speak with the patient about their risks for breast cancer, which includes their family history. At that time, you may recommend additional screening tests (Ultrasoun d or MRI) as these tests may add significant information. A negative radiographic report should not delay biopsy if a dominant or clinically suspicious mass is present. Up to ten percent of cancers are not identified on mammography. A negative report may reinforce clinical impression. Adenosis and dense breasts may obscure an underlying neoplasm. False positive reports average 6 to 10%. Patient will receive a letter notifying them of these results.
== END ==
DX: Z12.31 Encounter for screening mammogram for malignant neoplasm of breast (principal)
CPT/HCPCS: 77063; 77067

== ENCOUNTER 2022-06-10 03:37 | Outpatient (CLI) | payer BC, SELFPAY ==
[2022-06-10 12:38] LABS: ESR 6 mm/hr (0-30)
[2022-06-10 12:49] LABS: C-Reactive Protein 0.18 mg/dL (0.0-0.3)
[2022-06-11 13:46] LABS: Lyme Ab w Rflx to Lyme Confirm Negative (Negative)
== END 2022-06-10 03:38 | disposition home or self-care (01) ==
LOC: LOS 03:37
PROVIDERS: Visit Provider Family Medicine
DX: R41.89 Other symptoms and signs involving cognitive functions and awareness (principal); M25.59 Pain in other specified joint
CPT/HCPCS: 36415; 85652; 86140; 86618

== ENCOUNTER 2022-06-16 11:36 | Outpatient (CLI) | payer BC, SELFPAY ==
--- NOTE | 2022-06-16 10:45 | DI.RAD_ITS ---
Exam(s) XR KNEE LT 2V AP,LAT EXAM: XR KNEE LT 2V AP,LAT CLINICAL HISTORY: f/u L TKA. TECHNIQUE: 2D digital imaging was performed. COMPARISON: No exams were available for comparison FINDINGS: Two views There is stable alignment of the components of the prosthesis. No fracture or loosening evident. IMPRESSION: DATA REPOSITORY: RADIATION DOSE DELIVERED:
--- NOTE | 2022-06-16 10:45 | DI.RAD_ITS ---
Exam(s) XR ELBOW RT COMPLETE EXAM: XR ELBOW RT COMPLETE CLINICAL HISTORY: eval R elbow pain and restricted motion. TECHNIQUE: 2D digital imaging was performed. COMPARISON: No exams were available for comparison FINDINGS: 3 views There is no evidence of acute fracture nor prominent joint effusion. There is no swelling of the ole cranon bursa. Some degenerative change is noted in the medial aspect of the radial head-neck but no fracture at this level evident. Olecranon unremarkable. Epicondyles unremarkable. There is some so ft tissue swelling over the dorsal aspect of proximal forearm noted. IMPRESSION: There is some soft tissue swelling over the dorsal aspect of forearm. However, there is no acute fra cture evident at the level of the elbow and visualized proximal aspect of the radius and ulna. Also no radiopaque foreign body. DATA REPOSITORY: RADIATION DOSE DELIVERED:
== END 2022-06-16 11:37 | disposition home or self-care (01) ==
LOC: DIORS 11:36
PROVIDERS: Visit Provider Student in an Organized Health Care Education/Training Program
DX: Z96.652 Presence of left artificial knee joint (principal); M25.521 Pain in right elbow
CPT/HCPCS: 73080; 73560

== ENCOUNTER 2022-07-17 19:51 | Outpatient (REF) | payer BC, SELFPAY | END 2022-07-17 19:52 | disposition home or self-care (01) | LOC: LBN 19:51 | PROVIDERS: Visit Provider Physician Assistant | DX: B34.9 Viral infection, unspecified (principal) | CPT/HCPCS: 87070 ==

== ENCOUNTER 2022-12-23 01:21 | Outpatient (CLI) | payer BC, SELFPAY ==
--- NOTE | 2022-12-23 06:45 | DI.MRI_ITS ---
Exam(s) MR UPPER JOINT RT WO EXAM: MR UPPER JOINT RT WO CLINICAL HISTORY: R ELBOW PAIN,[id number]. TECHNIQUE: Multiplanar multisequence MRI was performed. COMPARISON: CR XR ELBOW RT COMPLETE from 06/16/2022 FINDINGS: BONES: There is no fracture or contusion pattern. There is a small subchondral cyst in the lateral ep icondyle. JOINTS: The articular cartilage is unremarkable. No joint effusion is present. TENDONS: Common flexors: Unremarkable. Common extensors: Unremarkable. Biceps: Unremarkable. Triceps: Unremarkable. MUSCLES: Unremarkable. MEDIAN NERVE: Unremarkable on this noncontrast examination. ULNAR NERVE: Unremarkable on this noncontrast examination. Mild edema in the soft tissues adjacent to the ulnar nerve. SOFT TISSUES: There is mild edema seen in the soft tissues posterior and medially near the ulnar nerv e and ulnar collateral ligament. LIGAMENTS: Ulnar collateral: There is hyperintense signal seen at the attachment site of the ulnar collateral li gament to the distal humerus suspicious for tear. Radial collateral: Unremarkable. OTHER: IMPRESSION: Findings suspicious for partial tear of the ulnar collateral ligament proximally. Mild edema in the adjacent soft tissues. DATA REPOSITORY:
== END 2022-12-23 01:41 ==
LOC: DI 01:21
PROVIDERS: PCP Nurse Practitioner Family; Visit Provider Student in an Organized Health Care Education/Training Program
DX: R93.7 Abnormal findings on diagnostic imaging of other parts of musculoskeletal system (principal)
CPT/HCPCS: 73221

== ENCOUNTER 2023-05-06 02:46 | Outpatient (CLI) | payer BC, SELFPAY ==
[2023-05-06 12:34] LABS: Hemoglobin A1C 5.7 % (<5.7)
[2023-05-06 12:53] LABS: ALT 23 U/L (14-59); AST 15 U/L (15-37); Albumin 3.7 g/dL (3.4-5.0); Alkaline Phosphatase 81 U/L (46-116); Anion Gap 10.4 mmol/L (3-11); BUN 18 mg/dL (7-18); Bilirubin, Total 0.4 mg/dL (0.2-1.0); CO2 26.6 mmol/L (21.0-32.0); CREATININE 0.8 mg/dL (0.55-1.02); Chloride 106 mmol/L (98-107); Estimated GFR 83.26 (mL/min/1.73m2); Glucose 93 mg/dL (74-106); Sodium 143 mmol/L (136-145); Total Protein 7.1 g/dL (6.4-8.2)
== END 2023-05-06 02:47 | disposition home or self-care (01) ==
LOC: LOS 02:47
PROVIDERS: PCP Nurse Practitioner Family; Visit Provider Nurse Practitioner Family
DX: R73.03 Prediabetes (principal); Z00.00 Encounter for general adult medical examination without abnormal findings
CPT/HCPCS: 36415; 80053; 83036

== ENCOUNTER 2023-05-29 00:43 | Outpatient (CLI) | payer BC, SELFPAY ==
--- NOTE | 2023-05-29 11:49 | DI.MAMMO_ITS ---
Exam(s) MAMMO SCREENING EXAM: MAMMO SCREENING ??? CLINICAL HISTORY: screening,z12.39 TECHNIQUE: Bilateral full field digital CC and MLO mammographic images were obtained with 3D tomosyn thesis and utilizing computer aided detection (CAD). COMPARISON: Available for comparison. FINDINGS: Masses/Architectural Distortion: None seen. Microcalcifications: No suspicious pleomorphic-type are seen. Skin Thickening/Nipple Retraction: None. IMPRESSION: 1. No significant interval change with no specific features of malignancy noted. 2. Unless there is more urgent need, screening mammography is recommended, as per [employer] guidelines. Category: Breast Density - Category B - Scattered areas of fibroglandular density Breast density category C or D implies that the patient has dense breast tissue. Dense breast tissue is very common and is not abnormal but dense breast tissue can make it harder to find cancer on a ma mmogram. Also, dense breast tissue may increase their breast cancer risk. This information about the result of the mammogram report was provided to the patient to raise their awareness. Use this report when you speak with the patient about their risks for breast cancer, which includes their family hist ory. At that time, you may recommend for more screening tests (Ultrasound or MRI) as they might be us eful based on their risk. A negative radiographic report should not delay biopsy if a dominant or clinically suspicious mass is present. Up to ten percent of cancers are not identified on mammography. A negative report may reinforce clinical impression. Adenosis and dense breasts may obscure an underlying neoplasm. False positive reports average 6 to 10%. Patient will receive a letter notifying them of these results.
== END 2023-05-29 01:03 ==
PROVIDERS: PCP Nurse Practitioner Family; Visit Provider Nurse Practitioner Family
DX: Z12.31 Encounter for screening mammogram for malignant neoplasm of breast (principal)
CPT/HCPCS: 77063; 77067

== ENCOUNTER 2023-09-14 15:53 | Outpatient (CLI) | payer BC, SELFPAY ==
--- NOTE | 2023-09-14 15:15 | DI.RAD_ITS ---
Exam(s) XR KNEE LT 4V AP,LAT,CHARU,PAT EXAM: XR KNEE LT 4V AP,LAT,CHARU,PAT CLINICAL HISTORY: painful L TKA. TECHNIQUE: 2D digital imaging was performed. Three views. COMPARISON: CR XR KNEE LT 2V AP,LAT from 06/16/2022 FINDINGS: BONES: No acute fracture is present. No bony destructive lesion is seen. JOINTS: There has been no change in the alignment of the total knee prosthesis. A small joint effusi on is seen. SOFT TISSUE: Normal. IMPRESSION: Stable appearance of total knee prosthesis. DATA REPOSITORY: RADIATION DOSE DELIVERED:
== END 2023-09-14 15:54 | disposition home or self-care (01) ==
LOC: DIORS 15:53
PROVIDERS: PCP Nurse Practitioner Family; Visit Provider Student in an Organized Health Care Education/Training Program
DX: Z47.1 Aftercare following joint replacement surgery (principal); Z96.652 Presence of left artificial knee joint
CPT/HCPCS: 73564

== ENCOUNTER 2023-09-16 02:14 | Outpatient (CLI) | payer BC, SELFPAY ==
[2023-09-16 14:45] LABS: ESR 5 mm/hr (0-30)
[2023-09-16 15:14] LABS: C-Reactive Protein 0.29 mg/dL (0.0-0.3)
== END 2023-09-16 02:15 | disposition home or self-care (01) ==
PROVIDERS: PCP Nurse Practitioner Family; Visit Provider Student in an Organized Health Care Education/Training Program
DX: T84.84XA Pain due to internal orthopedic prosthetic devices, implants and grafts, initial encounter (principal); Z98.890 Other specified postprocedural states
CPT/HCPCS: 36415; 85652; 86140

== ENCOUNTER → 2023-10-28 00:19 | Outpatient (CLI) | payer BC, SELFPAY ==
--- NOTE | 2023-10-28 06:45 | DI.NM_ITS ---
Exam(s) W[place] BONE SCAN 3 PHASE EXAM: W[place] BONE SCAN 3 PHASE CLINICAL HISTORY: pain,? loosening lt total knee replacement,,T84.84xa. TECHNIQUE: Injected Dose: 25 mCi Tc-99m MDP COMPARISON: CT,[facility] BONE SCAN 3 PHASE from 11/25/2019 CR [id number] from 04/17/2021 CR XR KNEE LT 1V from 07/29/2021 CR XR STANDING ALIGNMENT from 07/29/2021 CR XR KNEE LT 2V AP,LAT from 06/16/2022 CR XR KNEE LT 4V AP,LAT,CHARU,PAT from 09/14/2023 FINDINGS: Perfusion images: Symmetric. No focal hyperemia evident Blood Pool images: Some increase uptake is seen in the region of the medial femoral condyle of the ri ght knee, most probably degenerative. In the left knee (side of prosthesis) there is no abnormal foc al uptake seen on the quality brim images. Delayed images: There is increased focal uptake in the medial compartment of the right knee, most pro bably degenerative. With respect to the left knee (side of prosthesis). There is no abnormal uptake seen around the femo ral component. There is some increased uptake of radiopharmaceutical subjacent to the medial aspect of the tibial component. This may indicate an element of loosening IMPRESSION: 1. Increased uptake subjacent to the medial aspect of the tibial component of the left knee which may indicate loosening. No abnormal uptake related to the component of the prosthesis. 2. Uptake in the medial compartment of the opposite-right knee noted, most probably related to degen erative changes in the medial compartment. DATA REPOSITORY:
--- NOTE | 2023-10-28 06:45 | DI.CT_ITS ---
Exam(s) CT LOWER EXTREMITY LT WO EXAM: CT LOWER EXTREMITY LT WO CLINICAL HISTORY: pain,? loosening lt total hip replacement,T84.84xa. TECHNIQUE: Imaging Protocol: Axial computed tomography images with coronal and sagittal reformatted images were created and reviewed. CONTRAST MATERIAL: None COMPARISON: CT CT LOWER EXTREMITY LT WO from 12/02/2019 FINDINGS: There has been interval left knee arthroplasty. Components appear to be in satisfactory position alignment. There is also been patellar resurfacing. There is no evidence of fracture nor obvious blue prosthesis lucency to suggest obvious loosening. Small amount of increased joint fluid noted. No osseous lesions. No evidence of osteomyelitis. IMPRESSION: No evidence of fracture lines nor loosening of the prosthesis. Small joint effusion is noted. RADIATION DOSE DELIVERED: Total DLP DATA REPOSITORY: All CT scans at this facility are submitted to the National Radiology Data Registry (NRDR) Dose Index Registry (DIR) with the [employer] (ACR). RADIATION OPTIMIZATION: All CT scans at this facility use at least one of these dose optimization te chniques: automated exposure control; mA and/or kV adjustment per patient size (includes targeted exa ms where dose is matched to clinical indication); or iterative reconstruction.
== END ==
PROVIDERS: PCP Nurse Practitioner Family; Visit Provider Student in an Organized Health Care Education/Training Program
DX: T84.84XA Pain due to internal orthopedic prosthetic devices, implants and grafts, initial encounter (principal); Z96.652 Presence of left artificial knee joint
CPT/HCPCS: 73700; 78315

== ENCOUNTER 2024-05-04 02:43 | Outpatient (CLI) | payer BC, SELFPAY ==
[2024-05-04 12:42] LABS: HCT 39.4 % (36.0-46.0); HGB 12.9 g/dL (11.2-15.7); MCH 28.9 pg (27.0-33.0); MCHC 32.7 % (32.0-36.0); MCV 88 fL (80-95); MPV 10.8 fL (8.0-11.0); Platelet Count 265 10^3/uL (130-400); RBC 4.46 10^6/uL (3.93-5.22); RDW 12.7 % (11.7-14.6); RDW-SD 41.2 fL; WBC 8.91 10^3/uL (4.4-10.8)
[2024-05-04 13:12] LABS: Calculated LDL 76 mg/dL (<100); Cholesterol 149 mg/dL (<200); HDL Cholesterol 55 mg/dL (40-60); TSH (W/Ref FT4) 1.93 uIU/mL (0.36-3.74); Triglyceride 92 mg/dL (<150)
[2024-05-04 13:17] LABS: Hemoglobin A1C 5.8 % (<5.7)
[2024-05-04 13:25] LABS: C-Reactive Protein < 0.50 mg/dL (<or=0.5)
[2024-05-04 13:37] LABS: ESR 5 mm/hr (0-30)
[2024-05-04 20:16] LABS: HIV-1/2 Ag & Ab Screen Negative (Negative)
[2024-05-04 20:17] LABS: Hepatitis C Ab w Rflx HCV PCR Negative (Negative)
== END 2024-05-04 02:44 | disposition home or self-care (01) ==
LOC: LOS 02:43
PROVIDERS: PCP Nurse Practitioner Family; Visit Provider Nurse Practitioner Family
DX: Z11.4 Encounter for screening for human immunodeficiency virus [HIV] (principal); R53.83 Other fatigue; E06.3 Autoimmune thyroiditis; Z11.59 Encounter for screening for other viral diseases; Z13.220 Encounter for screening for lipoid disorders; R73.03 Prediabetes; M25.50 Pain in unspecified joint
CPT/HCPCS: 36415; 80061; 85027; 85652; 86803; 87389; 83036; 84443; 86140

== ENCOUNTER 2024-05-29 12:34 | Emergency (ER) | payer BC, SELFPAY ==
[2024-05-29 12:36] VITALS: BP 146/69; PULSE 82; RESP 18; TEMP 36.4; O2SAT 97
[2024-05-29 12:53] VITALS: BP 133/48; PULSE 68; RESP 18; TEMP 36.3; O2SAT 96
[2024-05-29 12:58] LABS: Bilirubin Negative (Negative); Blood Negative (Negative); Clarity Clear (Clear); Glucose Negative (Negative); Ketones Negative (Negative); Leukocyte Esterase Negative (Negative); Nitrite Positive (Negative); Urobilinogen 0.2 mg/dL (Up to 0.2)
[2024-05-29 13:08] LABS: Bacteria Moderate HPF (Negative); C & S Indicated? No/Sq. Contamination; Casts Negative LPF (Negative); Crystals Negative HPF (Negative); Epithelial Cells Moderate HPF (Negative); Mucus Negative (Negative); RBC 0-2 HPF (0-2); WBC 0-2 HPF (0-5)
--- NOTE | 2024-05-29 13:18 | W.ED.GENAD ---
Discharge Plan Disposition Patient Disposition: Home Condition: Improving Discharge Details Clinical Impression: Flank pain Primary Care Provider: Kristopher Elam ED Provider: Kain Hernandez Home Meds and New Rx's Prescriptions: New cefpodoxime 200 mg tablet 200 mg PO BID 7 Days Qty: 14 0RF Rx Instructions: must administer with a meal/food cyclobenzaprine 5 mg tablet 5 mg PO QHS PRN (Reason: muscle spasm) Qty: 7 0RF lidocaine [Lidoderm] 5 % adhesive patch,medicated 1 patch topical DAILY PRNQty: 15 0RF Rx Instructions: leave on most painful area for up to 12 hrs No Action cyclosporine [Restasis] 0.05 % dropperette 1 drp ophthalmic (eye) Q12H fluocinolone 0.025 % cream 1 applic Topical BID PRN (Reason: psoriasis) Qty: 60 0RF Rx Instructions: Apply to bilateral hands, knees, feet citalopram 20 mg tablet 20 mg PO DAILY Qty: 90 3RF omega-3 fatty acids-fish oil 300-1,000 mg capsule 2 cap PO DAILY diclofenac sodium 1 % gel 4 g topical QID Qty: 100 3RF Rx Instructions: apply to single knee, ankle, foot sodium chloride [Isra 128] 5 % Drops 1 drp OPHTHALMIC (EYE) HS mupirocin 2 % ointment 1 applic topical BID acetaminophen [Tylenol Extra Strength] 500 mg tablet 500 mg PO Q6H PRNQty: 90 0RF Discharge Instructions Instructions: Flank Pain ED Additional Instructions: Please fill prescription for antibiotics if you develop fevers chills urinary symptoms, otherwise discard. Follow-up closely with your primary care physician. Return to the emergency department for any worsening symptoms HPI General Date/Time Provider Initiated Documentation: 05/29/24 12:45. HPI Narrative: 64-year-old female presents with acute onset left flank abdominal discomfort mild nausea, denies history of kidney stones. Denies urinary symptoms. No trouble breathing or shortness of breath. Endorses normal bowel movements Related Data Home Medications ?Medication ?Instructions ?Recorded ?Confirmed sodium chloride 5 % eye drops 1 drp ophthalmic (eye) HS 01/21/19 05/29/24 (Isra 128) omega-3 fatty acids-fish oil 300 2 cap PO DAILY 06/22/19 05/29/24 mg-1,000 mg capsule fluocinolone 0.025 % topical cream 1 applic topical BID PRN psoriasis 12/10/20 05/29/24 #60 grams cyclosporine 0.05 % eye drops in a 1 drp ophthalmic (eye) Q12H 05/27/21 05/29/24 dropperette (Restasis) acetaminophen 500 mg tablet 500 mg PO Q6H PRN #90 tabs 07/16/21 05/29/24 (Tylenol Extra Strength) diclofenac sodium 1 % topical gel 4 g topical QID #100 grams 02/12/24 05/29/24 citalopram 20 mg tablet 20 mg PO DAILY #90 tab-caps 05/03/24 05/29/24 cefpodoxime 200 mg tablet 200 mg PO BID 7 days #14 tabs 05/29/24 cyclobenzaprine 5 mg tablet 5 mg PO QHS PRN muscle spasm #7 05/29/24 tabs lidocaine 5 % topical patch 1 patch topical DAILY PRN #15 ea 05/29/24 (Lidoderm) mupirocin 2 % topical ointment 1 applic topical BID 05/29/24 05/29/24 Previous Rx's ?Medication ?Instructions ?Recorded fluocinolone 0.025 % topical cream 1 applic topical BID PRN psoriasis 12/10/20 #60 grams acetaminophen 500 mg tablet 500 mg PO Q6H PRN #90 tabs 07/16/21 (Tylenol Extra Strength) diclofenac sodium 1 % topical gel 4 g topical QID #100 grams 02/12/24 citalopram 20 mg tablet 20 mg PO DAILY #90 tab-caps 05/03/24 cefpodoxime 200 mg tablet 200 mg PO BID 7 days #14 tabs 05/29/24 cyclobenzaprine 5 mg tablet 5 mg PO QHS PRN muscle spasm #7 05/29/24 tabs lidocaine 5 % topical patch 1 patch topical DAILY PRN #15 ea 05/29/24 (Lidoderm) Allergies Allergy/AdvReac Type Severity Reaction Status Date / Time pineapple AdvReac Intermediate some Verified 05/29/24 12:44 swelling of tongue General Stated Complaint: Abd Prob TRACIE: 3 Exam Narrative Exam Narrative: Appears moderately uncomfortable Moist mucous membranes tolerating secretions Normal voice no respiratory distress Abdomen soft nontender nondistended no CVA tenderness Alert moving all extremities without focal deficits Course Vital Signs Vital signs: Vital Signs Temperature 36.4 C 05/29/24 12:36 Pulse 82 05/29/24 12:36 Respiratory Rate 18 05/29/24 12:36 Blood Pressure 146/69 H 05/29/24 12:36 Pulse Oximetry 97 05/29/24 12:36 Temperature 36.3 C L 05/29/24 12:53 Temperature Source Oral 05/29/24 12:53 Pulse 68 05/29/24 12:53 Respiratory Rate 18 05/29/24 12:53 Respiratory Effort Normal, Non-Labored 05/29/24 12:41 Blood Pressure 133/48 L 05/29/24 12:53 Blood Pressure Position Right Lateral 05/29/24 12:53 Pulse Oximetry 96 05/29/24 12:53 Oxygen Delivery Method Room Air 05/29/24 12:53 Oxygen Flow Rate 0 05/29/24 12:36 Pain Level 10 05/29/24 12:53 Lab/Test Results Lab/Test Results: Laboratory Tests Range/Units 05/29/24 12:51 Urine Color (Yellow) Yellow Urine Clarity (Clear) Clear Urine pH (5-8) 7.0 Ur Specific Sharon (1.005-1.025) 1.020 Urine Protein (Neg-Trace) mg/dL Negative Urine Ketones (Negative) mg/dL Negative Urine Blood (Negative) Negative Urine Nitrite (Negative) Positive H Urine Bilirubin (Negative) Negative Urine Urobilinogen (Up to 0.2) mg/dL 0.2 Ur Leukocyte Esterase (Negative) Negative Urine RBC (0-2) HPF 0-2 Urine WBC (0-5) HPF 0-2 Ur Epithelial Cells (Negative) HPF Moderate Urine Crystals (Negative) HPF Negative Urine Bacteria (Negative) HPF Moderate Urine Casts (Negative) LPF Negative Urine Mucus (Negative) Negative Ur Culture Indicated? No/Sq. Contamination Urine Glucose (Negative) mg/dL Negative Medical Decision Making 64-year-old female presents with acute onset left flank pain abdominal discomfort, mild nausea without vomiting, nontender abdomen, no CVA tenderness, afebrile nontoxic however does appear uncomfortable. High clinical special for nephrolithiasis must also consider pyelonephritis versus UTI versus diverticulitis lower suspicion for aortic pathology ACS PE or pneumonia. Screening labs imaging fluids antiemetics anti-inflammatory tamsulosin close reassessed Feeling better after muscle relaxants topical Lidoderm and dexamethasone consider lumbar strain muscles consider passed kidney stone; nitrate positive urine however no leuks or WBCs, no dysuria patient did have subjective chills last night will send home with printed [id number] prescription for antibiotics if symptoms do not recur and are resolved patient was told to discard antibiotic prescription however if she is to develop worsening symptoms or neurologic symptomatology to begin antibiotics. 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 HPylori; neg. celiac; mild chronic gastritis Small fiber neuropathy (Acute) Trigger thumb of right hand (Acute) Injection: 09/21/2020 Hematuria (Acute) Herpetic lesion (Acute) Medical History (Updated 05/29/24 @ 17:29 by Kain Hernandez MD) Sciatica Dysuria Knee pain, left Hx of sleep apnea CPAP UTI (urinary tract infection) Infection Rupture of anterior cruciate ligament of knee Internal derangement of left knee Smoker Colonic polyp Abdominal pain Neck pain Abdominal bloating 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 Restless legs Anxiety Seborrheic keratosis Hx of abnormal mammogram Left ACL tear Vascular lesion Effusion, left knee Surgical History (Updated 05/03/24 @ 11:42 by Kristopher Schwartz NP) History of total left knee replacement (07/16/21) History of repair of ACL History of arthroscopic knee surgery x4 on left including ACL repair Vaginal hysterectomy (12/23/01) HAS BOTH OVARIES Colonoscopy - [facility] [place] 2005 2013 Family History Mother Diabetes Stroke Stomach cancer Father Lung cancer Sister Diabetes Cancer Brother Lung cancer Brother Lung cancer Sister No problems noted. Sister Diabetes Sister No problems noted. Brother Cancer Brother No problems noted. Brother No problems noted. Son No problems noted. Son No problems noted. Son No problems noted. Daughter No problems noted. Social History (Updated 05/06/24 @ 09:05 by Zoraida Roman) Smoking/Tobacco Use Status: Current every day Tobacco Type: cigarettes Tobacco: How many years used: 30 Quit status: considering quitting Second Hand Exposure: Yes Counseling given: patient declined Smoking risk assessment performed?: Yes Alcohol Intake: current Alcohol Intake frequency: a few times a week Alcohol type: beer Details: 2-3 PER WEEK Drug use: Never Substance use type: does not use Counseling given: No Counseling provided: none Caregiver/Support person: No Household members: spouse Housing: house Number of Children: 4 Communication Needs: None Do you need help understanding health information?: Rarely current occupation: Registrar for [employer] Pets and animals: No Sexually active: Yes Do you think of yourself as: straight/heterosexual Current gender identity: female What is your relationship status?: How often do you talk on the phone with friends or family?: once per week How often do you get together with friends or relatives?: three or more times per week How often do you attend pentecostalism or caodaism services?: 1-3 times per year Do you belong to any clubs or organized social groups?: no Panel score (0-1 are the most socially isolated patients): 2 What type of physical activity do you participate in: walking Duration: 15-30 minutes/day Frequency: daily Marilu/Presybeterian: Cheondoism Special marilu needs: No Seatbelt use: always Drive intox or ride w/intox emergency detail driver: No Do you feel safe at home: Yes Do you feel safe in your relationship?: Yes
[2024-05-29 13:25] LABS: Abs Immature Grans 0.04 10^3/uL (0.0-0.06); Absolute Basophil Count 0.09 10^3/uL (0.0-0.2); Absolute Lymphocyte Count 4.02 10^3/uL (1.2-3.4); Absolute Monocyte Count 0.65 10^3/uL (0.1-0.8); Basophils % 0.8 %; HCT 38.8 % (36.0-46.0); HGB 12.5 g/dL (11.2-15.7); Immature Grans % 0.4 %; Lymphocytes % 35.7 %; MCH 28.9 pg (27.0-33.0); MCHC 32.2 % (32.0-36.0); MCV 90 fL (80-95); MPV 9.6 fL (8.0-11.0); Monocytes % 5.8 %; Neutrophils % 55.3 %; Platelet Count 254 10^3/uL (130-400); RBC 4.33 10^6/uL (3.93-5.22); RDW 13.1 % (11.7-14.6); RDW-SD 42.9 fL; WBC 11.27 10^3/uL (4.4-10.8)
[2024-05-29 13:26] LABS: Absolute Eosinophil Count 0.23 10^3/uL (0.0-0.7); Absolute Neutrophil Count 6.23 10^3/uL (1.2-6.7)
[2024-05-29 13:40] LABS: ALT 31 U/L (14-59); AST 18 U/L (15-37); Albumin 3.8 g/dL (3.4-5.0); Alkaline Phosphatase 79 U/L (46-116); Anion Gap 7.4 mmol/L (3-11); BUN 17 mg/dL (7-18); Bilirubin, Total 0.29 mg/dL (0.2-1.0); CO2 27.6 mmol/L (21.0-32.0); CREATININE 0.9 mg/dL (0.55-1.02); Calcium 8.7 mg/dL (8.5-10.1); Chloride 106 mmol/L (98-107); Estimated GFR 71.83 (mL/min/1.73m2); Glucose 91 mg/dL (74-106); Lipase 111 U/L (16-77); Potassium 3.9 mmol/L (3.5-5.1); Sodium 141 mmol/L (136-145)
[2024-05-29] MEDS: Ketorolac 15 MG/ML VIAL IVP (13:44)
[2024-05-29] MEDS: Ondansetron 4 MG/2 ML VIAL IVP (13:44)
[2024-05-29] MEDS: MORPHine 4 MG/ML SYR 2 MG IVP (13:44)
[2024-05-29] MEDS: Tamsulosin 0.4 MG CAPCR PO (13:45)
[2024-05-29] MEDS: Normal Saline 1,000 ML 1000 ML IV (13:45)
--- NOTE | 2024-05-29 14:25 | DI.CT_ITS ---
Exam(s) CT ABDOMEN PELVIS WO EXAM: CT ABDOMEN PELVIS WO CLINICAL HISTORY: left flank pain, abd pain, concern for kidney ston. TECHNIQUE: Imaging Protocol: Axial computed tomography images with coronal and sagittal reformatted images were created and reviewed. COMPARISON: CT ABD PELVIS WITH CONTRAST from 08/08/[address] CHEST LUNG CANCER SCREEN from 05/26/2024 FINDINGS: ABDOMEN: Lung Bases: Normal where visualized. Liver: There is decreased attenuation of the liver consistent with fatty infiltration. No measurable mass. Gallbladder and biliary tract: No radiodense calculus or biliary ductal dilation. Pancreas: There is diffuse decreased attenuation of the pancreas. It appears stable. There is no bi liary ductal dilatation or pancreatic ductal dilatation. Spleen: Normal. Kidneys: Normal size, contour and axis.No radiodense stones or obstructive uropathy. No masses seen. Adrenal glands: No mass is seen. Lymph nodes: Within normal limits. Abdominal Aorta: Abdominal portion non-dilated. Atherosclerotic calcification is present. PELVIS: Bladder:Symmetric distention, no gross wall thickening. Bowel: No obstruction or bowel wall thickening. No evidence of appendicitis. Peritoneal cavity: No ascites, collection or mesenteric inflammatory response. No free air. Reproductive organs: Status post hysterectomy. Bones: Within normal limits. Soft Tissues: There is a small fat containing umbilical hernia. IMPRESSION: 1. No evidence of nephrolithiasis or hydronephrosis. 2. Diffuse decreased attenuation of the pancreas which is mildly enlarged. This appears unchanged co mpared to the prior examinations. MRI of the pancreas may be obtained for further evaluation. 3. Fatty infiltration of the liver. Unexpected findings RADIATION DOSE DELIVERED: Total DLP DATA REPOSITORY: All CT scans at this facility are submitted to the National Radiology Data Registry (NRDR) Dose Index Registry (DIR) with the [employer] (ACR). RADIATION OPTIMIZATION: All CT scans at this facility use at least one of these dose optimization te chniques: automated exposure control; mA and/or kV adjustment per patient size (includes targeted exa ms where dose is matched to clinical indication); or iterative reconstruction.
[2024-05-29] MEDS: HYDROmorphone 2 MG/ML SYR 0.5 MG IVP (14:47)
[2024-05-29 14:51] VITALS: BP 129/56; PULSE 64
--- NOTE | 2024-05-29 15:04 | DI.VRAD_ITS ---
PROCEDURE INFORMATION: Exam: CT Abdomen And Pelvis Without Contrast Exam date and time: 05/29/2024 2:15 PM Age: 64 years old Clinical indication: Abdominal pain; Patient HX: No gross hematuria, left flank pain x 1 day. TECHNIQUE: Imaging protocol: Computed tomography of the abdomen and pelvis without contrast. Radiation optimization: All CT scans at this facility use at least one of these dose optimization techniques: automated exposure control; mA and/or kV adjustment per patient size (includes targeted exams where dose is matched to clinical indication); or iterative reconstruction. COMPARISON: CT CHEST LUNG CANCER SCREEN 05/26/2024 2:54 PM FINDINGS: Liver: Normal. Gallbladder and biliary ducts: Normal Pancreas: Normal. Spleen: Normal. Adrenal glands: Normal. No mass. Kidneys and ureters: Normal. Stomach and bowel: Colonic diverticulosis. Appendix: Appendix normal. Intraperitoneal space: Unremarkable. No free air. No significant fluid collection. Vasculature: Phleboliths within the pelvis. Lymph nodes: Unremarkable. No enlarged lymph nodes. Urinary bladder: Unremarkable as visualized. Reproductive: Uterus surgically absent. Bones/joints: Multilevel thoracolumbar spine degenerative disc space narrowing and osteophyte formation. Grade 1 degenerative anterolisthesis of L4 on L5. Soft tissues: Small fat containing umbilical hernia. IMPRESSION: No acute abdominal or pelvic abnormality. Dictated and Authenticated by: Yaniv Joel MD. Ordering:PRINCE Finnegan MD
[2024-05-29] MEDS: Dexamethasone 10 MG/ML VIAL IVP (16:23)
[2024-05-29] MEDS: Cyclobenzaprine 10 MG TAB PO (16:24)
[2024-05-29] MEDS: Lidocaine 5% Patch 1 PATCH TP (16:24)
== END 2024-05-29 18:08 | disposition home or self-care (01) ==
PROVIDERS: Emergency Provider Emergency Medicine; PCP Nurse Practitioner Family
DX: R10.9 Unspecified abdominal pain (principal); R11.0 Nausea; F17.210 Nicotine dependence, cigarettes, uncomplicated
CPT/HCPCS: 36415; 80053; 83690; 96361; 96374; 96375; 99285; 74176; 81003; 81015; 85025; 99284; J1100; J1170; J1885; J2270; J2405

== ENCOUNTER 2024-07-12 01:14 | Outpatient (CLI) | payer BC, SELFPAY ==
--- NOTE | 2024-07-12 07:45 | DI.MAMMO_ITS ---
Exam(s) MAMMO SCREENING EXAM: MAMMO SCREENING CLINICAL HISTORY: screening,Z12.39 TECHNIQUE: Mammograms were interpreted according to the usual protocol including computer analysis w [employer] CAD system, tomosynthesis and C-view imaging. COMPARISON: 2015 through 2022 FINDINGS: The breasts are composed of scattered fibroglandular densities, Breast Density category B. No suspicious masses or suspicious microcalcifications are seen. No skin thickening or abnormal axillary lymph nodes are seen. There has been no significant change from prior exams. IMPRESSION: BI-RADS Category 1, Negative mammogram Yearly screening mammography is recommended. Breast Density - Category B, scattered fibroglandular densities. A negative radiographic report should not delay biopsy if a dominant or clinically suspicious mass is present. Up to ten percent of cancers are not identified on mammography. A negative report may reinforce clinical impression. Adenosis and dense breasts may obscure an underlying neoplasm. False positive reports average 6 to 10%. Patient will receive a letter notifying them of these results.
== END 2024-07-12 01:34 ==
LOC: DI 01:14
PROVIDERS: PCP Nurse Practitioner Family; Visit Provider Nurse Practitioner Family
DX: Z12.31 Encounter for screening mammogram for malignant neoplasm of breast (principal)
CPT/HCPCS: 77063; 77067

== ENCOUNTER 2024-08-16 01:42 | Outpatient (CLI) | payer BC, SELFPAY ==
[2024-08-16] MEDS: Gadoterate meglumine 20 ML VIAL 18 ML IVP (08:34)
[2024-08-16] MEDS: Normal Saline - Diluent 50 ML VIAL IJ (08:35)
--- NOTE | 2024-08-16 09:00 | DI.MRI_ITS ---
Exam(s) MR ABDOMEN WO/W EXAM: MR ABDOMEN WO/W CLINICAL HISTORY: f/u from 05/25 CT,abd bloating,abd pain,enlarged pancreas,k86.9,r10.9,r14.0 TECHNIQUE: Multiplanar multisequence MRI of the Abdomen was performed. CONTRAST MATERIAL: IV Contrast: 18 mL of Dotarem contrast administered. COMPARISON: CT ABD PELVIS WITH CONTRAST from 08/08/[address] ABDOMEN PELVIS WO from 05/29/2024 FINDINGS: Liver: There are 2 tiny nonenhancing cysts in the liver. No follow-up is recommended. No suspicious hepatic mass is seen. Pancreas: Pancreas is homogeneous in signal intensity. No evidence of pancreatic mass is seen. No p eripancreatic fluid collections are present. The pancreatic duct is within normal limits. There is loss of signal on the in and opposed phase images suggesting diffuse fatty infiltration. Gallbladder and Bile Ducts: No cholelithiasis. No intra or extrahepatic biliary ductal dilatation. Adrenals: Unremarkable. Kidneys: No evidence of a renal mass. No evidence of hydronephrosis. Spleen: Unremarkable. Bowel: Unremarkable. No evidence of bowel obstruction or inflammation. Aorta: Unremarkable. No evidence of an abdominal aortic aneurysm. Soft Tissues: Unremarkable. Bone: Within normal limits for the patient's age. Degenerative changes are seen in the lumbar spine. Lymph Nodes: Unremarkable. IMPRESSION: 1. No evidence of a pancreatic mass or inflammatory process. 2. Fatty infiltration of the pancreas is noted. DATA REPOSITORY:
== END 2024-08-16 02:02 ==
LOC: DI 01:42
PROVIDERS: PCP Nurse Practitioner Family; Visit Provider Nurse Practitioner Family
DX: K86.9 Disease of pancreas, unspecified
CPT/HCPCS: 74183

== ENCOUNTER 2025-05-08 13:31 | Outpatient (REF) | payer BC, SELFPAY ==
[2025-05-08 21:24] LABS: ALT 42 U/L (14-59); AST 26 U/L (15-37); Albumin 3.9 g/dL (3.4-5.0); Alkaline Phosphatase 93 U/L (46-116); Anion Gap 6.9 mmol/L (3-11); BUN 17 mg/dL (7-18); Bilirubin, Total 0.3 mg/dL (0.2-1.0); CO2 31.1 mmol/L (21.0-32.0); Calcium 9.3 mg/dL (8.5-10.1); Calculated LDL 125 mg/dL (<100); Chloride 105 mmol/L (98-107); Cholesterol 203 mg/dL (<200); Estimated GFR 96.52 (mL/min/1.73m2); Glucose 99 mg/dL (74-106); HDL Cholesterol 49 mg/dL (>or=50); Hemoglobin A1C 5.8 % (<5.7); Potassium 4.9 mmol/L (3.5-5.1); Sodium 143 mmol/L (136-145); TSH (W/Ref FT4) 1.56 uIU/mL (0.36-3.74); Total Protein 6.9 g/dL (6.4-8.2); Triglyceride 147 mg/dL (<150)
== END 2025-05-08 13:32 | disposition home or self-care (01) ==
LOC: LBN 13:31
PROVIDERS: PCP Nurse Practitioner Family; Visit Provider Nurse Practitioner Family
DX: R73.03 Prediabetes (principal); E06.3 Autoimmune thyroiditis; Z13.220 Encounter for screening for lipoid disorders
CPT/HCPCS: 80053; 80061; 83036; 84443

== ENCOUNTER 2025-06-01 02:08 | Outpatient (CLI) | payer BC, SELFPAY ==
--- NOTE | 2025-06-01 13:15 | DI.CTLCSR_ITS ---
Exam(s) CT CHEST LUNG CANCER SCREEN EXAM: CT CHEST LUNG CANCER SCREEN CLINICAL HISTORY: Screening for lung cancer, cigarette smoker, F17.200 TECHNIQUE: Imaging Protocol: Axial computed tomography images with coronal and sagittal reformatted images were created and reviewed. Low dose screening protocol. COMPARISON: CT CT CHEST LUNG CANCER SCREEN from 06/16/2022 FINDINGS: Tracheobronchial tree: No bronchiectasis or mucus plugging. Mediastinum and Cathie: No dominant adenopathy or fluid collection. Pulmonary parenchyma: No consolidation or dominant measurable mass. No visible emphysematous changes. No significant interstitial changes. Lung Nodules: None. Pleura: No effusion. No pneumothorax. Heart: The heart is not dilated. No coronary artery calcifications are seen. No pericardial effusion. Aorta: Thoracic aorta non-dilated. Upper abdomen: Unremarkable. Bones: Unremarkable for age. Soft Tissues: Unremarkable. IMPRESSION: No suspicious pulmonary nodules. Lung RADS Cat 1 - Negative: No nodules and definitely benign nodules Lung-RADS 1.0 CATEGORIES: Category 0 - Prior chest CT exam(s) being located for comparison. Category 1 - Annual screening in 12 months. No nodules or definitely benign nodules. Category 2 - Annual screening in 12 months. Benign appearance. Nodules with low likelihood of becoming active cancer. Category 3 - 6-month follow-up. Probably benign. Short-term follow-up suggested. Nodules with low likelihood of becoming active cancer. Category 4A - 3-month follow-up and CT/PET if >8 mm in size. Suspicious finding. Findings which require additional testing. Category 4B - Findings which require additional testing and tissue sampling. Category 4X - Category 3 or 4 nodules with additional features or imaging findings that increases the suspicion of malignancy. Modifier S- Potentially clinically significant findings (non lung cancer) RADIATION DOSE DELIVERED: Total DLP DATA REPOSITORY: All CT scans at this facility are submitted to the National Radiology Data Registry (NRDR) Dose Index Registry (DIR) with the [employer] (ACR). RADIATION OPTIMIZATION: All CT scans at this facility use at least one of these dose optimization techniques: automated exposure control; mA and/or kV adjustment per patient size (includes targeted exams where dose is matched to clinical indication); or iterative reconstruction.
--- NOTE | 2025-06-01 14:53 | DI.DEXA_ITS ---
Exam(s) XR DEXA BONE DENSITY W/WO ASHISH EXAM: XR DEXA BONE DENSITY W/WO ASHISH CLINICAL HISTORY: screening for osteoporosis, postmenopausal state, Z78.0 TECHNIQUE: [employer] C densitometer analysis of left hip, lumbar spine and left forearm. Lateral survey image of the thoracic and lumbar spine. COMPARISON: MR MR LUMBAR SPINE WO from 10/08/2020 FINDINGS: Lateral view of the thoracic and lumbar spine shows no evidence of compression fractures. Bone mineral density measurements of the lumbar spine correspond to a total T- score of 1.2, in the normal range. Bone mineral density measurements of the left hip correspond to a total T-score of 1.5. The femoral neck T-score is -0.5, in the normal range.. Theleft forearm bone mineral density measurements correspond to a T-score of the distal 3rd of 0.5, in the normal range. IMPRESSION: Normal bone mineral density.
== END 2025-06-01 02:28 ==
LOC: DI 02:08
PROVIDERS: PCP Nurse Practitioner Family; Visit Provider Nurse Practitioner Family
DX: F17.210 Nicotine dependence, cigarettes, uncomplicated (principal); Z78.0 Asymptomatic menopausal state; Z12.2 Encounter for screening for malignant neoplasm of respiratory organs; Z13.820 Encounter for screening for osteoporosis
CPT/HCPCS: 71271; 77080

== ENCOUNTER 2025-07-13 03:15 | Outpatient (CLI) | payer BC, SELFPAY ==
--- NOTE | 2025-07-13 06:30 | DI.MAMMO_ITS ---
Exam(s) MAMMO SCREENING EXAM: MAMMO SCREENING CLINICAL HISTORY: screening,Z12.39. TECHNIQUE: Bilateral full field digital CC and MLO mammographic images were obtained with 3D tomosynthesis and utilizing computer aided detection (CAD). COMPARISON: Prior mammograms were reviewed. FINDINGS: There has been no significant change in the appearance and distribution of the fibroglandular tissue. There are no new spiculated masses nor malignant appearing microcalcification groups. There is no significant architectural distortion nor skin thickening-retraction. IMPRESSION: No radiographic evidence of malignancy. BI-RADS Category 1 - Negative Breast Density - Category B - There are scattered areas of fibroglandular density. Breast density Category C or D implies that the patient has dense breast tissue. Dense breast tissue can make it harder to find cancer on a mammogram. Dense breast tissue is also associated with an increased risk of breast cancer. This information about the result of the mammogram report was provided to the patient to raise their awareness. Use this report when you speak with the patient about their risks for breast cancer, which includes their family history. At that time, you may recommend additional screening tests (Ultrasound or MRI) as these tests may add significant information. A negative radiographic report should not delay biopsy if a dominant or clinically suspicious mass is present. Up to ten percent of cancers are not identified on mammography. A negative report may reinforce clinical impression. Adenosis and dense breasts may obscure an underlying neoplasm. False positive reports average 6 to 10%. Patient will receive a letter notifying them of these results.
== END 2025-07-13 03:35 ==
LOC: DI 03:15
PROVIDERS: PCP Nurse Practitioner Family; Visit Provider Nurse Practitioner Family
DX: Z12.31 Encounter for screening mammogram for malignant neoplasm of breast (principal); E06.3 Autoimmune thyroiditis; R92.323 Mammographic fibroglandular density, bilateral breasts
CPT/HCPCS: 77063; 77067